=== PATIENT | male | born 1985 | race Caucasian/White ===

== ENCOUNTER 2020-10-29 09:35 | Emergency (ER) | payer BC, SELFPAY ==
[2020-10-29 09:45] VITALS: BP 156/97; PULSE 92; RESP 20; TEMP 36.8; O2SAT 97; BMI 30.7
[2020-10-29 09:49] VITALS: BP 156/97; PULSE 92; RESP 20; TEMP 36.8; O2SAT 97; BMI 30.8
--- NOTE | 2020-10-29 10:13 | HMH.EDUTC ---
[facility] Disposition Clinical Impression: Dental abscess Disposition: Home, Self-Care Condition on Discharge: Good Instructions: Tooth Abscess, Amoxicillin and Clavulanic Acid Additional Instructions: Take antibiotics as prescribed Warm compresses on jaw area may help with pain and swelling Take medications as prescribed for pain Use dental balls as directed in [facility] Make sure to call and make appointment with dentist as soon as possible Follow up with your Family Doctor if no improvement or any worsening of symptoms Return if needed Straight to ER if any life threatening symptoms Prescriptions: Ibuprofen [Ibuprofen 800mg Tablet] 800 mg PO Q8HP PRN #20 tab PRN Reason: Moderate Pain Transmission Status: Pending to [facility] # Amoxicillin/Potassium Clav [Augmentin 875-125 Tablet] 1 tab PO Q12H 10 Days #20 tab Transmission Status: Pending to [facility] # Referrals: PCPNancy [Primary Care Provider] - As needed Alcon Kumar [Referring] - Time of Disposition: 10:22 Medical Decision Making - Ameya Inquiry Pt receiving controlled substance: No Ameya was queried for this patient: No Vital Signs: 10/29/20 09:45 10/29/20 09:49 Temperature 98.3 F 98.3 F Temperature Source Oral Oral Pulse Rate [Left Radial] 92 H 92 H Respiratory Rate 20 20 Blood Pressure [Right Arm] 156/97 H 156/97 H Blood Pressure Mean [Right Arm] 116 116 Blood Pressure Source [Right Arm] Automatic Cuff Automatic Cuff Blood Pressure Position [Right Arm] Sitting Sitting 02 Sat by Pulse Oximetry 97 97 Oxygen Delivery Method Room Air Room Air Orders (Tests/Meds): ED MEDICATIONS Discontinued Medications Generic Name Dose Route Start Last Admin Trade Name Freq PRN Reason Stop Dose Admin Benzocaine/Butamben/Tetracaine HCl 1 gm 10/29/20 10:13 Tetracaine/Benzocaine/Butamben 56 Gm [place] TP 10/29/20 10:14 ONCE ONE Lidocaine HCl 15 ml 10/29/20 10:13 Lidocaine 2% Viscous Marnie 15ml Udc PO 10/29/20 10:14 ONCE ONE Medical Decision Narrative: Patient denies medication allergies and denies home medications [facility] HPI - General Stated complaint: pain in left side of mouth, possible abcess tooth Time Seen by Provider: 10/29/20 10:13 Mode of Arrival: Ambulatory Source of Information: Patient Limitations: No Limitations Description of Symptoms (Recalled from Triage Doc. by RN): c/o upper left tooth pain that goes into his ear and head for 3 days. - History of Present Illness Provider Complaint: Patient states that he has multiple broken and decaying teeth and for the last 3 days he has been having pain in his left upper teeth and noticed he was starting to have some swelling in his gums and swelling and pain starting in his left jaw area and pain shooting back to his ear States that he has had dental abscess in the past that was similar so he came in - Related Data Previous Rx's Medication Instructions Recorded Amoxicillin/Potassium Clav 1 tab PO Q12H 10 Days #20 tab 10/29/20 [Augmentin 875-125 Tablet] Ibuprofen [Ibuprofen 800mg 800 mg PO Q8HP PRN #20 tab 10/29/20 Tablet] Allergies Allergy/AdvReac Type Severity Reaction Status Date / Time No Known Allergies Allergy Verified 10/29/20 09:57 - Worker's Comp Is this a Worker's Comp case?: No [facility] History - Hepatitis A Screen Drug use history?: No High risk sexual behaviors?: No History of sexually transmitted infection?: No Currently employed?: No Childcare worker?: No Do you have indoor plumbing?: Yes Do you have electricity?: Yes Attestation statement:: This patient has been screened for Hepatitis A risk factors. I have reviewed the patient's past medical history: Yes - Social History Smoking Status: Current every day smoker Tobacco Type: cigarettes # Packs/Day (cigarettes): 1 Alcohol Intake: never Occupational Status: other ROS Obtained: Yes All systems reviewed & no additional complaints, Yes S
[2020-10-29 10:25] VITALS: BP 156/97; PULSE 92; RESP 20; TEMP 36.8; O2SAT 97
== END 2020-10-29 10:29 | disposition home or self-care (01) ==
LOC: UTC 09:43 → ER 09:45 → UTC 09:51
PROVIDERS: Emergency Provider Nurse Practitioner
DX: K04.7 Periapical abscess without sinus (principal); K02.9 Dental caries, unspecified; F17.210 Nicotine dependence, cigarettes, uncomplicated
CPT/HCPCS: 99202; G0463

== ENCOUNTER 2020-11-27 11:18 | Emergency (ER) | payer BC, SELFPAY ==
[2020-11-27 11:19] VITALS: BP 163/101; PULSE 91; RESP 18; TEMP 36.8; O2SAT 96; BMI 29.9
[2020-11-27 11:53] LABS: Microscopic, Urine URINE MICROSCOPIC (MICROSCOPIC)
--- NOTE | 2020-11-27 11:54 | CT_ITS ---
PROCEDURE: CT ABDOMEN PELVIS W CON CLINICAL INDICATION: pain Left-sided abdominal pain COMPARISON: No exams were available for comparison TECHNIQUE: IV Contrast: 75ML Isovue 370 Oral Contrast None Axial images obtained with sagittal and coronal reformats. All CT scans at the facility use one or more dose reduction, viz: automated exposure control, ma/kV adjustment per patient size (including targeted exams where dose is matched to indication, i.e. head), or iterative reconstruction technique. FINDINGS: LOWER THORAX: No acute finding ABDOMEN & PELVIS: The liver, gallbladder, spleen, adrenal glands, and pancreas have an unremarkable appearance. No intestinal obstruction or free air. No evidence of appendicitis. There is a complex left retroperitoneal mass with both cystic and solid components. The mass measures 11 cm transverse, 6.5 cm AP, and 9.7 cm cephalad caudad. The mass is epicentered in the left aspect of the retroperitoneum medial to the left kidney. This is displacing the left kidney laterally. The central aspect of the mass has a cystic component. The transverse duodenum is displaced anteriorly. The mass extends across midline toward the right. There are multiple enlarged lymph nodes in the right aspect of the retroperitoneum measuring up to 3.8 cm. There is moderate left-sided hydronephrosis. There is a complex mass within the left hemiscrotum have been a both solid and cystic appearance. The left testicle is enlarged at 7.6 x 6 cm. Small amount fluid is present in the left hemiscrotum. IMPRESSION: There is a large left retroperitoneal mass as described above causing left-sided hydronephrosis and displacing the duodenum anteriorly. Multiple enlarged lymph nodes are present in the right aspect of the retroperitoneum. There is also a suspicious left scrotal mass. Testicular neoplasm with extensive retroperitoneal adenopathy is considered. Conversely, there could be a sarcoma of the retroperitoneum on the left with retroperitoneal adenopathy and metastatic disease to the testicle. Further investigation is required.. Dictated by: Jose Raul Diggs MD 11/27/2020 13:25 Jose Raul Diggs MD in [place] 11/27/2020 13:25
--- NOTE | 2020-11-27 11:55 | HMH.EDABDPAI ---
ED Disposition Clinical Impression: Abdominal mass, left lower quadrant, Testicular mass Disposition: Home, Self-Care Condition on Discharge: Good Instructions: DI for Abdominal Pain-Adult Prescriptions: Hydrocod/Acet 5/325 mg [[place] 5/325mg tablet] 1 tab PO Q6HP PRN #7 tab PRN Reason: Moderate To Severe Pain Transmission Status: Received by [email or web address] #[id number] Referrals: [facility] [Other] Javed Green MD [Staff Physician] - Jason Owens MD [Staff Physician] - - Critical Care Critical Care Time: No Attestation: On 11/27/20, the high probability of a clinically significant, sudden or life threatening deterioration of the following system(s) required my full and direct attention, intervention and personal management. The time I documented below is in addition to time spent performing reported procedures but includes the following listed in this critical care notation. Medical Decision Making - Medical Records Medical records reviewed: Yes: I reviewed the patient's medical records. - Ameya Inquiry Pt receiving controlled substance: Yes Ameya was queried for this patient: No Reason not queried -: Ameya login issues Risks and benefits of using a controlled substance: were discussed with pt by me Vital Signs: 11/27/20 11:19 11/27/20 12:00 Temperature 98.3 F Temperature Source Oral Pulse Rate 85 Pulse Rate [Right Radial] 91 H Respiratory Rate 18 Blood Pressure 142/100 H Blood Pressure [Right Arm] 163/101 H Blood Pressure Mean 118 Blood Pressure Mean [Right Arm] 121 Blood Pressure Source [Right Arm] Automatic Cuff Blood Pressure Position [Right Arm] Sitting 02 Sat by Pulse Oximetry 96 96 Oxygen Delivery Method Room Air - Lab Data Lab Results 11/27/20 11:44: Urine Color Yellow, Urine Appearance Clear, Urine pH 6.5, Ur Specific [place] 1.020, Urine Protein Trace, Urine Glucose (UA) Negative, Urine Ketones Negative, Urine Blood Trace-l, Urine Nitrate Negative, Urine Bilirubin Negative, Urine Urobilinogen 0.2, Ur Leukocyte Esterase Negative, Urine RBC Occasional, Urine WBC 5-10, Ur Squamous Epith Cells Occasional, Urine Bacteria None 11/27/20 11:44: WBC 9.6, RBC 5.47, Hgb 16.0, Hct 49.1, MCV 89.6, MCH 29.2, MCHC 32.6, RDW 12.8, Plt Count 421, MPV 7.1 L, Neut % (Auto) 69.9, Lymph % (Auto) 19.0, [place] % (Auto) 6.0, Eos % (Auto) 4.0, Baso % (Auto) 1.2, Neut # (Auto) 6.7, Lymph # (Auto) 1.8, [place] # (Auto) 0.6, Eos # (Auto) 0.4, Baso # (Auto) 0.1 11/27/20 11:44: Sodium 139, Potassium 4.8, Chloride 108 H, Carbon Dioxide 24, Anion Gap 11.8, BUN 19, Creatinine 1.70 H, Estimated Creat Clear 85, Estimated GFR 47 L, Est GFR ( Amer) 56 L, Glucose 89, Calcium 9.3, Total Bilirubin 0.7, AST 39, ALT 43, Alkaline Phosphatase 110, Total Protein 8.8 H, Albumin 4.7, Globulin 4.1 H, Albumin/Globulin Ratio 1.1, Lipase 148 Result diagrams: 11/27/20 11:44 11/27/20 11:44 Orders (Tests/Meds): ED MEDICATIONS Discontinued Medications Generic Name Dose Route Start Last Admin Trade Name Freq PRN Reason Stop Dose Admin Sodium Chloride 1,000 mls @ 999 mls/hr 11/27/20 12:00 11/27/20 12:02 Sod Chlor 0.9% 1000ml Bag IV 11/27/20 13:00 999 mls/hr .Q1H1M NELSON Administration Iopamidol 75 ml 11/27/20 12:34 11/27/20 12:34 Iopamidol-370 (76%);100ml Bottle IV 11/27/20 12:35 75 ml ONCE ONE Administration Morphine Sulfate 4 mg 11/27/20 11:54 11/27/20 12:02 Morphine 4mg/Ml Syringe IV 11/27/20 11:55 4 mg ONCE ONE Administration Ondansetron HCl 4 mg 11/27/20 11:54 11/27/20 12:02 Ondansetron 4mg/2ml Vial IV 11/27/20 11:55 4 mg ONCE ONE Administration Sodium Chloride 10 ml 11/27/20 12:34 11/27/20 12:34 Sodium Chloride 0.9% 10ml Syr (Rad Only) IV 11/27/20 12:35 10 ml ONCE ONE Administration - CT Data CT Scan: Abdomen, Pelvis Time Received: 14:[address] Reviewed: Yes: I have reviewed the patient's CT results, I have viewed the rad
[2020-11-27 11:59] LABS: Chloride 108 mmol/L (98-107); Potassium 4.8 mmoL/L (3.5-5.1); Sodium 139 mmol/L (136-145)
[2020-11-27 12:00] VITALS: BP 142/100; PULSE 85; O2SAT 96
[2020-11-27 12:00] LABS: Appearance,Urine CLEAR (Clear); Basophils # 0.1 K/mm3 (0-0.2); Basophils % 1.2 % (0.1-2.0); Bilirubin,Urine Negative (Negative); Blood, Urine TRACE-L (Negative); Color,Urine YELLOW (Yellow); Eosinophils # 0.4 K/mm3 (0.0-0.4); Glucose,Urine (UA) Negative (Negative); Hematocrit 49.1 % (42.0-52.0); Ketones,Urine Negative (Negative); Leukocyte Esterase,Urine Negative (Negative); Lymphocytes # 1.8 K/mm3 (0.7-4.5); Mean Corpuscular HGB Conc 32.6 g/dL (31.8-35.4); Mean Corpuscular Hemoglobin 29.2 pg (27.0-31.2); Mean Corpuscular Volume 89.6 fl (80-94); Mean Platelet Volume 7.1 fl (7.4-10.4); Monocytes # 0.6 K/mm3 (0.1-1.0); Neutrophils # 6.7 K/mm3 (1.8-7.8); Neutrophils % 69.9 % (37.0-80.0); Nitrate,Urine Negative (Negative); PH,Urine 6.5 (5.0-8.5); Platelet Count 421 K/mm3 (142-424); Protein,Urine TRACE (Negative); Red Blood Count 5.47 M/mm3 (4.60-6.20); Red Cell Distribution Width 12.8 % (11.5-17.5); Urobilinogen,Urine 0.2 EU/dl (0.2); White Blood Count 9.6 K/mm3 (4.8-10.8)
[2020-11-27 12:01] LABS: Alanine Aminotransferase 43 U/L (12-78); Alkaline Phosphatase 110 U/L (38-126); Aspartate Amino Transferase 39 U/L (17-59); Bilirubin,Total 0.7 mg/dl (0.2-1.3); Blood Urea Nitrogen 19 mg/dl (9-20); Creatinine Clearance Estimated 85 mL/min (50-200); Estimated Glomerular Filt Rate 47 ml/min (>60); GFR (African American) 56 ML/MIN (>60)
[2020-11-27 12:02] LABS: Albumin Level 4.7 g/dl (3.5-5.0); Albumin/Globulin Ratio 1.1 (1.1-1.8); Anion Gap 11.8 mEq/L (5-15); Calcium 9.3 mg/dl (8.4-10.2); Carbon Dioxide 24 mmol/L (22.0-30.0); Globulin 4.1 g/dL (1.3-3.2); Glucose 89 mg/dl (74-100); Lipase 148 U/L (23-300); Total Protein,Serum 8.8 g/dl (6.3-8.2)
--- NOTE | 2020-11-27 12:07 | PC.NURSE ---
notified rad of CT order
[2020-11-27 12:10] LABS: RBC,Urine Occasional #/hpf (0-3)
[2020-11-27 12:11] LABS: Squamous Epithelial Cell,Urine Occasional #/hpf (0-5)
--- NOTE | 2020-11-27 12:13 | PC.NURSE ---
pt to CT
--- NOTE | 2020-11-27 12:34 | PC.NURSE ---
pt return from CT at this time
[2020-11-27 14:52] VITALS: BP 122/65; PULSE 78; RESP 15; TEMP 36.6; O2SAT 98
== END 2020-11-27 14:53 | disposition home or self-care (01) ==
PROVIDERS: Emergency Provider Emergency Medicine
DX: R19.04 Left lower quadrant abdominal swelling, mass and lump (principal); N50.89 Other specified disorders of the male genital organs; F17.210 Nicotine dependence, cigarettes, uncomplicated
CPT/HCPCS: 74177; 80053; 81001; 83690; 85025; 96365; 96375; 99283; J2405; Q9967

== ENCOUNTER → 2020-11-28 17:10 | Outpatient (CLI) | payer BC, SELFPAY ==
--- NOTE | 2020-11-28 17:23 | XR_ITS ---
PROCEDURE: XR CHEST 2V CLINICAL HISTORY: SMOKER, EVALUATE FOR CHEST LESIONS. COMPARISON: No exams were available for comparison FINDINGS: The cardiomediastinal silhouette and pulmonary vascularity are within normal limits. The lungs are clear without infiltrates, suspicious nodules, or pleural effusions. No acute bony abnormalities. IMPRESSION: No acute findings. Dictated by: Jose Raul Diggs MD 11/28/2020 18:14 Jose Raul Diggs MD in [place] 11/28/2020 18:14
[2020-11-28 19:04] LABS: Lactate Dehydrogenase 597 U/L (313-618)
[2020-11-28 19:40] LABS: Erythrocyte Sedimentation Rate 6 mm/hr (0-15)
[2020-11-29 08:34] LABS: HCG,Quantitative 2163 mIU/ml (0-5.42)
[2020-11-30 14:11] LABS: CEA 0.9 ng/mL (0.0-4.7)
== END ==
PROVIDERS: Visit Provider Nurse Practitioner Family
DX: R19.04 Left lower quadrant abdominal swelling, mass and lump (principal); N50.89 Other specified disorders of the male genital organs
CPT/HCPCS: 36415; 71046; 82105; 82378; 83615; 84702; 85651

== ENCOUNTER 2021-01-17 10:15 | Emergency (ER) | payer BC, SELFPAY ==
[2021-01-17 10:17] VITALS: BP 161/97; PULSE 118; RESP 18; TEMP 37.1; O2SAT 98; BMI 27.9
--- NOTE | 2021-01-17 10:51 | HMH.EDGENADL ---
ED Disposition Clinical Impression: Pain, dental, Dental caries Disposition: Home, Self-Care Condition on Discharge: Good Referrals: Diana Rosa APRN [Primary Care Provider] - 3 days Time of Disposition: 11:03 - Critical Care Critical Care Time: No Attestation: On 01/17/21, the high probability of a clinically significant, sudden or life threatening deterioration of the following system(s) required my full and direct attention, intervention and personal management. The time I documented below is in addition to time spent performing reported procedures but includes the following listed in this critical care notation. Medical Decision Making - Medical Records Medical records reviewed: Yes: I reviewed the patient's medical records. - Ameya Inquiry Pt receiving controlled substance: No Vital Signs: 01/17/21 10:17 Temperature 98.7 F Temperature Source Oral Pulse Rate [Right Radial] 118 H Respiratory Rate 18 Blood Pressure [Right Arm] 161/97 H Blood Pressure Mean [Right Arm] 118 Blood Pressure Source [Right Arm] Automatic Cuff Blood Pressure Position [Right Arm] Sitting 02 Sat by Pulse Oximetry 98 Oxygen Delivery Method Room Air Medical Decision Narrative: 35yo M evaluated for dental pain. Patient was recently treated with Augmentin and will therefore be treated clindamycin this time. Patient is discharged home with dental balls. Patient is instructed to follow-up with a dentist for definitive care. Patient voices understanding and agreement the plan. General Adult HPI - General Chief complaint: Dental/Oral Stated complaint: possible tooth abcess Time Seen by Provider: 01/17/21 10:51 Mode of Arrival: Ambulatory Limitations: No Limitations Description of Symptoms (Recalled from ER Triage Doc. by RN): Pt c/o L upper dental pain. Pt was having dental issues a couple weeks ago, seen at [facility], took a round of antibiotics but did not get into the dentist r/t starting chemo. Pt also c/o body aches today. Pt states he is supposed to finished his first round of chemo today but is concerned about possible dental abscess. - History of Present Illness HPI narrative: 35yo M currently undergoing chemotherapy for cancer [facility] presents the emergency department secondary to dental pain. Patient was seen here approximately 6 weeks ago for the same issue. He reports taking antibiotics as directed and using his dental balls as directed. Patient has not followed up with a dentist as directed. He denies fever. He does have complaint of left facial swelling. - Related Data Previous Rx's Medication Instructions Recorded Hydrocod/Acet 5/325 mg [[place] 1 tab PO Q6HP PRN #7 tab 11/27/20 5/325mg tablet] Allergies Allergy/AdvReac Type Severity Reaction Status Date / Time No Known Allergies Allergy Verified 10/29/20 09:57 [facility] History - Hepatitis A Screen Drug use history?: No High risk sexual behaviors?: No History of sexually transmitted infection?: No Currently employed?: No Childcare worker?: No Do you have indoor plumbing?: Yes Do you have electricity?: Yes Attestation statement:: This patient has been screened for Hepatitis A risk factors. I have reviewed the patient's past medical history: Yes Medical History: Reports:: Cancer (testicular) - Social History Smoking Status: Current every day smoker Tobacco Type: cigarettes # Packs/Day (cigarettes): 1 Alcohol Intake: never Substance Use Type: marijuana Occupational Status: other ROS Obtained: Yes All systems reviewed & no additional complaints Physical Exam - General General appearance: alert, in no apparent distress - Head Head exam: atraumatic, normocephalic, normal inspection - Eye Eye exam: Present: normal appearance, PERRL, EOMI - ENT ENT exam: Present: normal exam, normal oropharynx, mucous membranes moist, other (Poor dentition throughout) - Neck Neck exam: Present: normal inspection, full ROM, trachea midline. Abse
[2021-01-17 11:14] VITALS: BP 149/71; PULSE 91; RESP 17; TEMP 36.8; O2SAT 98
== END 2021-01-17 11:13 | disposition home or self-care (01) ==
PROVIDERS: Emergency Provider Family Medicine; PCP Nurse Practitioner Family
DX: K02.9 Dental caries, unspecified (principal); K08.89 Other specified disorders of teeth and supporting structures; C62.90 Malignant neoplasm of unspecified testis, unspecified whether descended or undescended; F17.210 Nicotine dependence, cigarettes, uncomplicated
CPT/HCPCS: 99281

== ENCOUNTER → 2021-07-20 13:38 | Outpatient (CLI) | payer BC, SELFPAY ==
[2021-07-23 07:42] LABS: H. pylori Stool Ag, EIA Negative (Negative)
== END ==
PROVIDERS: Visit Provider Dietitian, Registered
DX: K26.4 Chronic or unspecified duodenal ulcer with hemorrhage (principal)
CPT/HCPCS: 87338

== ENCOUNTER → 2021-08-17 12:12 | Outpatient (CLI) | payer BC, SELFPAY | PROVIDERS: Visit Provider Internal Medicine | DX: Z01.818 Encounter for other preprocedural examination (principal); Z11.52 Encounter for screening for COVID-19 | CPT/HCPCS: C9803; U0003; U0005 ==

== ENCOUNTER → 2021-10-02 13:14 | Outpatient (CLI) | payer BC, SELFPAY | PROVIDERS: PCP Nurse Practitioner Family; Visit Provider Nurse Practitioner | DX: U07.1 COVID-19 (principal) | CPT/HCPCS: C9803; U0003; U0005 ==

== ENCOUNTER 2021-10-06 10:15 | Emergency (ER) | payer BC, SELFPAY ==
[2021-10-06] VITALS (9 sets, daily range): BP systolic 127–154; BP diastolic 88–102; PULSE 82–107; RESP 11–21; TEMP 36.6–37.1; O2SAT 95–99; BMI 25.8
--- NOTE | 2021-10-06 10:40 | XR_ITS ---
PROCEDURE INFORMATION: Exam: XR Chest Exam date and time: 10/06/2021 10:40 AM Age: 36 years old Clinical indication: Dyspnea; Additional info: Shortness of breath, palpatations TECHNIQUE: Imaging protocol: XR of the chest. Views: 1 view. COMPARISON: CR XR CHEST 2V 11/28/2020 5:28 PM FINDINGS: Tubes, catheters and devices: Right IJ Port-A-Cath terminates in the region of the superior cavoatrial junction. Lungs: Unremarkable. No consolidation. Pleural spaces: Unremarkable. No pleural effusion. No pneumothorax. Heart/Mediastinum: Unremarkable. No cardiomegaly. Bones/joints: Unremarkable. IMPRESSION: No acute cardiopulmonary abnormality.
[2021-10-06 12:14] LABS: Basophils # 0.1 K/mm3 (0-0.2); Basophils % 1.1 % (0.1-2.0); Eosinophils # 0.2 K/mm3 (0.0-0.4); Hematocrit 46.5 % (42.0-52.0); Hemoglobin 15.1 g/dL (14.1-18.0); Lymphocytes # 1.2 K/mm3 (0.7-4.5); Lymphocytes % 16.5 % (10-50); Mean Corpuscular HGB Conc 32.4 g/dL (31.8-35.4); Mean Corpuscular Hemoglobin 28.5 pg (27.0-31.2); Mean Corpuscular Volume 88.1 fl (80-94); Mean Platelet Volume 7.2 fl (7.4-10.4); Monocytes # 0.5 K/mm3 (0.1-1.0); Monocytes % 6.9 % (1.7-9.3); Neutrophils # 5.3 K/mm3 (1.8-7.8); Neutrophils % 73.5 % (37.0-80.0); Platelet Count 397 K/mm3 (142-424); Red Blood Count 5.28 M/mm3 (4.60-6.20); Red Cell Distribution Width 15.8 % (11.5-17.5); White Blood Count 7.2 K/mm3 (4.8-10.8)
[2021-10-06 12:20] LABS: Alanine Aminotransferase 66 U/L (12-78); Albumin Level 4.5 g/dl (3.5-5.0); Albumin/Globulin Ratio 1.6 (1.1-1.8); Alkaline Phosphatase 75 U/L (38-126); Aspartate Amino Transferase 36 U/L (17-59); Bilirubin,Total 0.5 mg/dl (0.2-1.3); Blood Urea Nitrogen 15 mg/dl (9-20); Calcium 9.3 mg/dl (8.4-10.2); Carbon Dioxide 24 mmol/L (22.0-30.0); Chloride 108 mmol/L (98-107); Creatinine Clearance Estimated 109 mL/min (50-200); Estimated Glomerular Filt Rate 77 ml/min (>60); GFR (African American) 93 ML/MIN (>60); Globulin 2.9 g/dL (1.3-3.2); Glucose 85 mg/dl (74-100); Magnesium 1.9 mg/dl (1.6-2.3); Phosphorous 2.6 mg/dl (2.5-4.5); Sodium 141 mmol/L (136-145); Total Protein,Serum 7.4 g/dl (6.3-8.2)
[2021-10-06 12:25] LABS: D-Dimer 0.71 ug/mL (0.0-0.5)
[2021-10-06 12:39] LABS: T4 (Thyroxine) 15.2 ug/dl (5.53-11.0)
--- NOTE | 2021-10-06 12:45 | CT_ITS ---
PROCEDURE INFORMATION: Exam: CTA Chest With Contrast Exam date and time: 10/06/2021 12:45 PM Age: 36 years old Clinical indication: Dyspnea; Additional info: Shortness of breath. 75 of isovue 370 TECHNIQUE: Imaging protocol: Computed tomographic angiography of the chest with contrast. 3D rendering (Not supervised by radiologist): MIP and/or 3D reconstructed images were created by the technologist. Radiation optimization: All CT scans at this facility use at least one of these dose optimization techniques: automated exposure control; mA and/or kV adjustment per patient size (includes targeted exams where dose is matched to clinical indication); or iterative reconstruction. Contrast material: ISOVU 370; Contrast volume: 75 ml; Contrast route: INTRAVENOUS (IV); COMPARISON: CR XR CHEST PORTABLE 10/06/2021 11:19 AM FINDINGS: Tubes, catheters and devices: MediPort terminates in the right atrium Pulmonary arteries: No evidence of pulmonary embolus to the segmental level. Aorta: No aneurysm of the aorta. No dissection of the aorta. Retroperitoneum: 3.4 by 4 cm mass between the aortic arch and the left kidney. Series 5, image 128. There was a larger mass in this region in November 2020.. Lungs: Patchy opacities in the upper lobes and right middle lobe and lingula and both lower lobes may represent multifocal pneumonia including COVID-19. Pleural spaces: Unremarkable. No pneumothorax. No pleural effusion. Heart: Unremarkable. No cardiomegaly. No pericardial effusion. Lymph nodes: Possible enlarged retroperitoneal lymph nodes or masses Pancreas: 3.6 x 2.7 cm low-attenuation mass along the inferior aspect of the pancreas. Series 1001, image 36 and series 5 image 114. This is not clearly a loop of bowel and is worrisome for mass. It was not present in November 2020 Recommend repeat study with oral contrast. Additional mass more distally in the pancreatic tail. Series 5, image 112-115 . Kidneys and ureters: Hydronephrosis of the left kidney. Soft tissue density around the left collecting system. Series 5, image 128 -132.. Bones/joints: Unremarkable. No acute fracture. Soft tissues: Unremarkable. IMPRESSION: 1. No evidence of pulmonary embolus to the segmental level. 2. No aneurysm of the aorta. 3. No dissection of the aorta. 4. Patchy opacities in the upper lobes and right middle lobe and lingula and both lower lobes may represent multifocal pneumonia including COVID-19. 5. 3.6 x 2.7 cm low-attenuation mass along the inferior aspect of the pancreas. Series 1001, image 36 and series 5 image 114. This is not clearly a loop of bowel and is worrisome for mass. It was not present in November 2020 Recommend repeat study with oral contrast. Additional mass more distally in the pancreatic tail. Series 5, image 112-115 . 6. 3.4 by 4 cm mass between the aortic arch and the left kidney. Series 5, image 128. There was a larger mass in this region in November 2020.. 7. Hydronephrosis of the left kidney. Soft tissue density around the left collecting system. Series 5, image 128 -132.. This may be originating in the mass between the aortic arch in the left kidney COMMENTS: Consistent with the [employer]'s Incidental Findings Committee white paper (J Am Mana Radiol 2018): Any incidental renal lesion less than 1 cm or classified as too small to characterize, or any incidental cystic renal lesion characterized as simple-appearing, is likely benign. No follow-up imaging is recommended for these lesions per consensus recommendations based on imaging criteria.
[2021-10-06 12:53] LABS: Thyroid Stimulating Hormone 0.59 uIU/mL (0.465-4.68)
--- NOTE | 2021-10-06 14:19 | PC.NURSE ---
on the phone with SMOOTH
--- NOTE | 2021-10-06 14:40 | HMH.EDGENADL ---
ED Disposition Clinical Impression: Acute anxiety Disposition: Home, Self-Care Condition on Discharge: Good Prescriptions: hydrOXYzine pamoate [Vistaril 25mg capsule] 25 mg PO BID PRN 5 Days #10 cap PRN Reason: Anxiety Transmission Status: Pending to [facility] #[id number] hydrOXYzine pamoate [Vistaril 25mg capsule] 25 mg PO BID PRN 5 Days cap PRN Reason: Anxiety Prescription Printed Referrals: Diana Rosa APRN [Primary Care Provider] - - Critical Care Critical Care Time: No Attestation: On 10/06/21, the high probability of a clinically significant, sudden or life threatening deterioration of the following system(s) required my full and direct attention, intervention and personal management. The time I documented below is in addition to time spent performing reported procedures but includes the following listed in this critical care notation. Medical Decision Making - Medical Records Medical records reviewed: Yes: I reviewed the patient's medical records. - Ameya Inquiry Pt receiving controlled substance: No Ameya was queried for this patient: No Vital Signs: 10/06/21 10:16 10/06/21 11:00 10/06/21 11:30 Temperature 97.9 F Temperature Source Oral Pulse Rate 89 90 Pulse Rate [Right Radial] 107 H Respiratory Rate 18 18 18 Blood Pressure 127/88 127/95 H Blood Pressure [Right Arm] 149/100 H Blood Pressure Mean 95 101 Blood Pressure Mean [Right Arm] 116 Blood Pressure Source [Right Arm] Automatic Cuff Blood Pressure Position [Right Arm] Sitting 02 Sat by Pulse Oximetry 97 97 97 Oxygen Delivery Method Room Air 10/06/21 12:00 10/06/21 12:30 10/06/21 13:30 Temperature Temperature Source Pulse Rate 82 89 87 Pulse Rate [Right Radial] Respiratory Rate 16 18 21 Blood Pressure 127/90 129/91 H 154/97 H Blood Pressure [Right Arm] Blood Pressure Mean 98 100 115 Blood Pressure Mean [Right Arm] Blood Pressure Source [Right Arm] Blood Pressure Position [Right Arm] 02 Sat by Pulse Oximetry 97 98 99 Oxygen Delivery Method 10/06/21 14:00 10/06/21 14:30 Temperature Temperature Source Pulse Rate 89 86 Pulse Rate [Right Radial] Respiratory Rate 17 18 Blood Pressure 150/95 H 148/102 H Blood Pressure [Right Arm] Blood Pressure Mean 109 118 Blood Pressure Mean [Right Arm] Blood Pressure Source [Right Arm] Blood Pressure Position [Right Arm] 02 Sat by Pulse Oximetry 98 97 Oxygen Delivery Method - Lab Data Lab results reviewed: Yes: I reviewed the patient's lab results. Lab Results 10/06/21 11:45: WBC 7.2, RBC 5.28, Hgb 15.1, Hct 46.5, MCV 88.1, MCH 28.5, MCHC 32.4, RDW 15.8, Plt Count 397, MPV 7.2 L, Neut % (Auto) 73.5, Lymph % (Auto) 16.5, [place] % (Auto) 6.9, Eos % (Auto) 2.0, Baso % (Auto) 1.1, Neut # (Auto) 5.3, Lymph # (Auto) 1.2, [place] # (Auto) 0.5, Eos # (Auto) 0.2, Baso # (Auto) 0.1 10/06/21 11:45: D-Dimer 0.71 H 10/06/21 11:45: Sodium 141, Potassium 4.0, Chloride 108 H, Carbon Dioxide 24, Anion Gap 13.0, BUN 15, Creatinine 1.10, Estimated Creat Clear 109, Estimated GFR 77, Est GFR ( Amer) 93, Glucose 85, Calcium 9.3, Phosphorus 2.6, Magnesium 1.9, Total Bilirubin 0.5, AST 36, ALT 66, Alkaline Phosphatase 75, Total Protein 7.4, Albumin 4.5, Globulin 2.9, Albumin/Globulin Ratio 1.6, TSH 0.59, Thyroxine (T4) 15.2 H Result diagrams: 10/06/21 11:45 10/06/21 11:45 Orders (Tests/Meds): ED MEDICATIONS Discontinued Medications Generic Name Dose Route Start Last Admin Trade Name Freq PRN Reason Stop Dose Admin Hydroxyzine Pamoate 25 mg 10/06/21 10:41 10/06/21 11:58 Hydroxyzine Pamoate 25mg Capsule PO 10/06/21 10:42 25 mg ONCE ONE Administration Lactated Ringer's 1,000 mls @ 999 mls/hr 10/06/21 10:45 10/06/21 11:57 Lactated Ringer's 1000 Ml Bag IV 10/06/21 11:45 999 mls/hr .Q1H1M NELSON Administration Iopamidol 75 ml 10/06/21 13:30 10/06/21 14:06 Iopamidol-370 (76%);100ml Bottle IV 10/06/21
== END 2021-10-06 15:20 | disposition home or self-care (01) ==
PROVIDERS: Emergency Provider Emergency Medicine; PCP Nurse Practitioner Family
DX: U07.1 COVID-19 (principal); F41.9 Anxiety disorder, unspecified; C25.9 Malignant neoplasm of pancreas, unspecified; C79.82 Secondary malignant neoplasm of genital organs; I10 Essential (primary) hypertension; F17.210 Nicotine dependence, cigarettes, uncomplicated
CPT/HCPCS: 71045; 71275; 80053; 83735; 84100; 84436; 84443; 85025; 85378; 96365; 99282; J1642; Q9967

== ENCOUNTER 2022-03-18 21:39 | Emergency (ER) | payer BC, SELFPAY ==
[2022-03-18 22:20] VITALS: BP 0/0; PULSE 0; RESP 0; TEMP -17.7; TEMP 0; O2SAT 0
== END 2022-03-18 22:40 | disposition left against medical advice (07) ==
LOC: ER 22:38
PROVIDERS: Emergency Provider Emergency Medicine; PCP Nurse Practitioner Family
DX: Z53.21 Procedure and treatment not carried out due to patient leaving prior to being seen by health care provider (principal)

== ENCOUNTER 2022-03-28 01:13 | Emergency (ER) | payer BC, SELFPAY ==
--- NOTE | 2022-03-28 01:08 | ECG_ITS ---
APPROVED REPORT Exam: Resting ECG HR:110 bpm ECG Measurements Heart Rate 110 AXES FL 150 P 62 QRSd 84 QRS 67 QT 315 T 60 QTc 380 Conclusion SINUS TACHYCARDIA O/w NORMAL ECG UNCONFIRMED REPORT Electronically signed by : Ronald Franco MD 03/28/2022 10:09:07
[2022-03-28 01:23] VITALS: BP 153/106; PULSE 109; RESP 18; TEMP 37.4; O2SAT 99; BMI 30.7
[2022-03-28 01:24] LABS: Coronavirus 19, PCR Not Detected (NotDetected); Influenza A, PCR Not Detected (NotDetected); Influenza B, PCR Not Detected (NotDetected)
--- NOTE | 2022-03-28 01:31 | XR_ITS ---
PROCEDURE INFORMATION: Exam: XR Chest Exam date and time: 03/28/2022 1:32 AM Age: 36 years old Clinical indication: Pain; Chest pressure; Prior surgery; Surgery type: Port; Additional info: Cp, patient states chest pressure that radiated to left arm. States he thinks it might have been a panic attack TECHNIQUE: Imaging protocol: Radiologic exam of the chest. Views: 2 views. COMPARISON: CR XR CHEST PORTABLE 10/06/2021 11:19 AM FINDINGS: Tubes, catheters and devices: Right internal jugular central venous catheter tip in the lower superior vena cava. Lungs: Normal. Pleural spaces: Unremarkable. No pleural effusion. No pneumothorax. Heart/Mediastinum: Normal. Bones/joints: No acute abnormality. IMPRESSION: No acute cardiopulmonary abnormality.
--- NOTE | 2022-03-28 01:39 | PC.NURSE ---
Pt gone to RAD for XRAY
[2022-03-28 01:41] LABS: Basophils # 0.1 K/mm3 (0-0.2); Basophils % 1.1 % (0.1-2.0); Eosinophils # 0.3 K/mm3 (0.0-0.4); Eosinophils % 2.8 % (0.1-12.0); Hematocrit 47.6 % (42.0-52.0); Hemoglobin 16.6 g/dL (14.1-18.0); Lymphocytes # 2.8 K/mm3 (0.7-4.5); Mean Corpuscular HGB Conc 34.9 g/dL (31.8-35.4); Mean Corpuscular Hemoglobin 30.8 pg (27.0-31.2); Mean Corpuscular Volume 88.5 fl (80-94); Mean Platelet Volume 6.8 fl (7.4-10.4); Monocytes # 0.7 K/mm3 (0.1-1.0); Monocytes % 7.3 % (1.7-9.3); Neutrophils # 6.1 K/mm3 (1.8-7.8); Neutrophils % 60.8 % (37.0-80.0); Platelet Count 308 K/mm3 (142-424); Red Blood Count 5.38 M/mm3 (4.60-6.20); Red Cell Distribution Width 12.8 % (11.5-17.5); White Blood Count 10.1 K/mm3 (4.8-10.8)
[2022-03-28 01:42] LABS: Chloride 107 mmol/L (98-107); Potassium 3.6 mmoL/L (3.5-5.1); Sodium 137 mmol/L (136-145)
--- NOTE | 2022-03-28 01:43 | PC.NURSE ---
Pt back from RAD
[2022-03-28 01:44] LABS: Blood Urea Nitrogen 17 mg/dl (9-20); Creatinine Clearance Estimated 99 mL/min (50-200); Estimated Glomerular Filt Rate 58 ml/min (>60); GFR (African American) 70 ML/MIN (>60)
[2022-03-28 01:45] LABS: Anion Gap 10.6 mEq/L (5-15); Calcium 9.8 mg/dl (8.4-10.2); Carbon Dioxide 23 mmol/L (22.0-30.0); Glucose 104 mg/dl (74-100)
[2022-03-28 01:48] LABS: Lactic Acid 0.9 mmol/L (0.7-2.1)
--- NOTE | 2022-03-28 01:55 | PC.NURSE ---
at BS speaking with Pt
--- NOTE | 2022-03-28 01:56 | CT_ITS ---
PROCEDURE INFORMATION: Exam: CTA Chest With Contrast Exam date and time: 03/28/2022 2:11 AM Age: 36 years old Clinical indication: Pain; Chest pressure; Prior surgery; Surgery date: 6+ months; Surgery type: Port; Additional info: Cp, weakness TECHNIQUE: Imaging protocol: Computed tomographic angiography of the chest with contrast. 3D rendering (Not supervised by radiologist): MIP and/or 3D reconstructed images were created by the technologist. Radiation optimization: All CT scans at this facility use at least one of these dose optimization techniques: automated exposure control; mA and/or kV adjustment per patient size (includes targeted exams where dose is matched to clinical indication); or iterative reconstruction. Contrast material: ISOVUE; Contrast volume: 70 ml; Contrast route: INTRAVENOUS (IV); COMPARISON: CT ANGIO CHEST PE PROTOCOL 10/06/2021 1:14 PM FINDINGS: Tubes, catheters and devices: Right internal jugular central venous catheter tip in the lower superior vena cava. Pulmonary arteries: Normal. No pulmonary emboli. Aorta: Unremarkable. No aortic aneurysm. No aortic dissection. Lungs: 4 mm noncalcified subpleural pulmonary nodule within the anterior right upper lobe (series 5, image 40), unchanged. Pleural spaces: Unremarkable. No pneumothorax. No pleural effusion. Heart: Unremarkable. No cardiomegaly. No pericardial effusion. Lymph nodes: Unremarkable. No enlarged lymph nodes. Bones/joints: Unremarkable. No acute fracture. Soft tissues: Unremarkable. IMPRESSION: No acute thoracic abnormality.
[2022-03-28 01:58] LABS: Troponin I < 0.01 ng/ml (0.00-0.034)
[2022-03-28 02:30] VITALS: BP 141/99; PULSE 87; RESP 16; O2SAT 97
--- NOTE | 2022-03-28 02:44 | PC.NURSE ---
pt updated on POC and awating ct results
--- NOTE | 2022-03-28 02:45 | PC.NURSE ---
At approximately 0225 cnc service technician Fani notified me that during the patient ct for pe with contrast the patient complained of pain at his iv site (following dye insertion). Fani felt the site and noted a small knot and notified me of her findings after applying a cold compress. I assessed the IV and during draw back got good blood return and IV flushed without any pain, though a small non tender knot was noted next to the site. notified. No new orders.
[2022-03-28 03:00] VITALS: BP 140/93; PULSE 79; RESP 20; O2SAT 98
--- NOTE | 2022-03-28 03:29 | [facility]H.EDCP ---
ED Disposition Clinical Impression: Atypical chest pain Disposition: Home, Self-Care Condition on Discharge: Good Instructions: DI for Atypical Chest Pain Additional Instructions: call pcp for follow up Referrals: Diana Rosa APRN [Primary Care Provider] - - Critical Care Critical Care Time: No Attestation: On 03/28/22, the high probability of a clinically significant, sudden or life threatening deterioration of the following system(s) required my full and direct attention, intervention and personal management. The time I documented below is in addition to time spent performing reported procedures but includes the following listed in this critical care notation. Medical Decision Making - Medical Records Medical records reviewed: Yes: I reviewed the patient's medical records. - Ameya Inquiry Pt receiving controlled substance: No Vital Signs: 03/28/22 01:23 03/28/22 02:30 03/28/22 03:00 Temperature 99.3 F Temperature Source Oral Pulse Rate 87 79 Pulse Rate [Apical] 109 H Respiratory Rate 18 16 20 Blood Pressure 141/99 H 140/93 H Blood Pressure [Right Arm] 153/106 H Blood Pressure Mean 112 102 Blood Pressure Mean [Right Arm] 121 Blood Pressure Source [Right Arm] Automatic Cuff Blood Pressure Position [Right Arm] Sitting 02 Sat by Pulse Oximetry 99 97 98 Oxygen Delivery Method Room Air - Lab Data Lab results reviewed: Yes: I reviewed the patient's lab results. Lab Results 03/28/22 01:14: SARS-CoV-2 (PCR) Not detected, Influenza A Untype (PCR) Not detected, Influenza Type B (PCR) Not detected 03/28/22 01:22: WBC 10.1, RBC 5.38, Hgb 16.6, Hct 47.6, MCV 88.5, MCH 30.8, MCHC 34.9, RDW 12.8, Plt Count 308, MPV 6.8 L, Neut % (Auto) 60.8, Lymph % (Auto) 28.0, [place] % (Auto) 7.3, Eos % (Auto) 2.8, Baso % (Auto) 1.1, Neut # (Auto) 6.1, Lymph # (Auto) 2.8, [place] # (Auto) 0.7, Eos # (Auto) 0.3, Baso # (Auto) 0.1 03/28/22 01:22: Sodium 137, Potassium 3.6, Chloride 107, Carbon Dioxide 23, Anion Gap 10.6, BUN 17, Creatinine 1.40 H, Estimated Creat Clear 99, Estimated GFR 58 L, Est GFR ( Amer) 70, Glucose 104 H, Calcium 9.8, Troponin I < 0.01 03/28/22 01:22: Lactate 0.9 Result diagrams: 03/28/22 01:22 03/28/22 01:22 Orders (Tests/Meds): ED MEDICATIONS Generic Name Dose Route Start Last Admin Trade Name Freq PRN Reason Stop Dose Admin Sodium Chloride 1,000 mls @ 999 mls/hr 03/28/22 01:45 03/28/22 01:33 Sod Chlor 0.9% 1000ml Bag IV 03/28/22 02:45 999 mls/hr .Q1H1M NELSON Administration Discontinued Medications Generic Name Dose Route Start Last Admin Trade Name Freq PRN Reason Stop Dose Admin Aspirin 324 mg 03/28/22 01:31 03/28/22 01:33 Aspirin 81mg Chewable Tablet PO 03/28/22 01:32 324 mg ONCE ONE Administration Iopamidol 70 ml 03/28/22 02:23 03/28/22 02:24 Iopamidol-370 (76%);100ml Bottle IV 03/28/22 02:24 70 ml ONCE ONE Administration Sodium Chloride 50 ml 03/28/22 02:23 03/28/22 02:24 0.9 % Sodium Chloride 50 Ml Vial IV 03/28/22 02:24 50 ml ONCE ONE Administration Sodium Chloride 10 ml 03/28/22 02:23 03/28/22 02:24 Sodium Chloride 0.9% 10ml Syr (Rad Only) IV 03/28/22 02:24 10 ml ONCE ONE Administration ORDERS Category Date Time Status Troponin I Q3H Lab 03/28/22 04:45 Ordered Troponin I Q3H Lab 03/28/22 07:45 Ordered Blood Culture Stat Micro 03/28/22 01:22 Received - Radiology Data #1 Image(s): Chest Image Reviewed: Yes I have reviewed radiologist's interpretation Preliminary Findings: Normal/NAD - CT Data CT Scan: Chest Time Received: 03:[address] Reviewed: Yes: I have viewed the radiologist's interpretation Preliminary Findings: Normal/NAD - ECG Data Tracing #1 Arrhythmias present: sinus tach Ischemic changes: non-specific ST-T wave changes Medical Decision Narrative: chest pain nonspecific with stable labs and exam Chest Pain HPI - General Chief Complaint: Chantelle
[2022-03-28 03:47] VITALS: BP 133/91; PULSE 74; RESP 18; TEMP 37.4; O2SAT 98
== END 2022-03-28 03:49 | disposition home or self-care (01) ==
PROVIDERS: Emergency Provider Emergency Medicine; PCP Nurse Practitioner Family
DX: R07.89 Other chest pain (principal); R53.1 Weakness; R42 Dizziness and giddiness; F17.210 Nicotine dependence, cigarettes, uncomplicated
CPT/HCPCS: 71046; 71275; 80048; 83605; 84484; 85025; 87040; 93005; 96360; 99285; C9803; Q9967; U0003; U0005

== ENCOUNTER → 2022-10-17 15:24 | Outpatient (CLI) | payer BC, SELFPAY | PROVIDERS: PCP Nurse Practitioner Family; Visit Provider Nurse Practitioner Family | DX: R00.2 Palpitations (principal) | CPT/HCPCS: 93225; 93226 ==

== ENCOUNTER 2024-02-04 11:50 | Emergency (ER) | payer BC, SELFPAY ==
[2024-02-04] VITALS (7 sets, daily range): BP systolic 124–139; BP diastolic 89–105; PULSE 74–130; RESP 12–21; TEMP 36.7; O2SAT 95–97; BMI 34.8
--- NOTE | 2024-02-04 11:47 | ECG_ITS ---
APPROVED REPORT Exam: Resting ECG HR:125 bpm ECG Measurements Heart Rate 125 AXES WA 148 P 55 QRSd 84 QRS 75 QT 336 T 28 QTc 410 Conclusion SINUS TACHYCARDIA NONSPECIFIC ST & T-WAVE ABNORMALITY ABNORMAL RHYTHM ECG Electronically signed by : ROMÁN SAWYER, 02/04/2024 16:10:04
--- NOTE | 2024-02-04 12:00 | XR_ITS ---
FINAL REPORT CLINICAL HISTORY: Precordial chest pain FINDINGS: A single view of the chest was obtained. A chest port is present with the tip in the SVC. The heart is normal in size. The mediastinum is unremarkable. The lungs are clear. There is no pleural effusion. There is no pneumothorax. There is no acute osseous abnormality. IMPRESSION: No acute cardiopulmonary process. Reviewed, Interpreted and Dictated by Jerry Qiuros MD Transcribed by Britney Medellin Authenticated and [facility]
[2024-02-04] MEDS: ASPIRIN 81MG CHEWABLE TABLET 324 MG PO (12:03)
[2024-02-04 12:13] LABS: Basophils # 0.2 K/mm3 (0-0.2); Basophils % 1.6 % (0.1-2.0); Eosinophils # 0.2 K/mm3 (0.0-0.4); Eosinophils % 2.2 % (0.1-12.0); Lymphocytes # 2.5 K/mm3 (0.7-4.5); Lymphocytes % 24.6 % (10-50); Mean Corpuscular HGB Conc 33.4 g/dL (31.8-35.4); Mean Corpuscular Hemoglobin 31.3 pg (27.0-31.2); Mean Corpuscular Volume 93.8 fl (80-94); Monocytes # 0.7 K/mm3 (0.1-1.0); Monocytes % 6.9 % (1.7-9.3); Neutrophils # 6.6 K/mm3 (1.8-7.8); Neutrophils % 64.8 % (37.0-80.0); Platelet Count 318 K/mm3 (142-424); Red Blood Count 5.76 M/mm3 (4.60-6.20); Red Cell Distribution Width 13.5 % (11.5-17.5); White Blood Count 10.3 K/mm3 (4.8-10.8)
[2024-02-04 12:27] LABS: Anion Gap 16.6 mEq/L (5-15); Blood Urea Nitrogen 21 mg/dl (9-20); Calcium 10.4 mg/dl (8.4-10.2); Carbon Dioxide 24 mmol/L (22.0-30.0); Chloride 105 mmol/L (98-107); Creatinine Clearance Estimated 109 mL/min (50-200); Estimated Glomerular Filt Rate 53 ml/min (>60); GFR (African American) 64 ML/MIN (>60); Glucose 99 mg/dl (74-100); Potassium 3.6 mmoL/L (3.5-5.1); Sodium 142 mmol/L (136-145)
[2024-02-04 12:53] LABS: D-Dimer 0.34 ug/mL (0.0-0.5)
[2024-02-04 13:03] LABS: NT Pro Brain Natriuretic Pep. < 20.0 pg/mL (0-125)
[2024-02-04 13:10] LABS: Coronavirus 19, PCR Not Detected (NotDetected); Influenza A, PCR Not Detected (NotDetected); Influenza B, PCR Not Detected (NotDetected)
[2024-02-04] MEDS: LACTATED RINGERS 1000ML 1,000 ML 999 ML IV (13:13)
--- NOTE | 2024-02-04 13:37 | HMH.EDCP ---
Discharge Plan Disposition Patient Disposition: Home, Self-Care Condition: Good Prescriptions Prescriptions: New pantoprazole 40 mg tablet,delayed release (DR/EC) 40 mg PO DAILY Qty: 30 1RF No Action metoprolol succinate 50 mg Tablet Extended Release 24 Hr 50 mg PO DAILY duloxetine 60 mg Capsule,Delayed Release(Dr/Ec) 60 mg PO DAILY Referrals Follow up/Referrals: Diana Strong APRN [Primary Care Provider] - See instructions Activity Restrictions/Add. Instructions Additional Instructions/Restrictions: You were evaluated in the emergency department today. Please follow-up closely with your primary care provider. cupola melter your prescription and take daily as prescribed. Return to the emergency department for new or worsening symptoms Clinical Impressions Clinical Impression: Chest pain, Anxiety, Acid reflux Instructions Patient Instructions: DI for Atypical Chest Pain Discharge ED Provider: Reba Ortiz General Chief Complaint: Chest Pain Stated Complaint: chest pain Time Seen by Provider: 02/04/24 12:17 Mode of Arrival: Ambulatory Source of Information: Patient Limitations: No Limitations Description of Symptoms (Recalled from ER Triage Doc. by RN): PT. states he has had chest pain/ discomfort for about a week. He states it has gotten worse today about 2 hours ago. It is in the left side of his chest and radiaites to the shoulder around to his back. He states it is a heavy feeling that worsenes with activity. History of Present Illness HPI narrative: This patient is a 38-year-old male with a history of anxiety, testicular cancer with metastasis status post surgical resection and chemotherapy, tobacco use disorder, marijuana use disorder, DANK, and dental caries presenting to the emergency department for evaluation with concern for chest pain and generally feeling unwell for about a week. He states that he feels like something in his body is not right. He states that he feels like his whole body is shutting down. He notes that his symptoms got worse about 2 hours ago. To the left side of his chest and radiates to his shoulder. He describes it as a heaviness that worsens with any sort of activity. He states that he gets very fatigued and cannot hardly do anything at all. No fevers, cough, congestion, abdominal pain, vomiting, or other concerns noted. Related Data Home Medications Medication Instructions Recorded Confirmed duloxetine 60 mg capsule,delayed 60 mg PO DAILY 02/04/24 02/04/24 release metoprolol succinate 50 mg 50 mg PO DAILY 02/04/24 02/04/24 tablet,extended release 24 hr Previous Rx's Medication Instructions Recorded pantoprazole 40 mg tablet,delayed 40 mg PO DAILY #30 tabs 02/04/24 release Allergies Allergy/AdvReac Type Severity Reaction Status Date / Time No Known Allergies Allergy Verified 02/04/24 12:04 [facility] Disclaimer: The information contained in this section may have been updated after the patient was seen, as this information can be updated by other users. Medical History Depression Hypertension DANK (obstructive sleep apnea) Lymph node cancer Testicular cancer Surgical History H/O removal of testicle Social History Smoking Status: Current every day smoker tobacco type: cigarettes packs per day: 1 alcohol intake: never substance use type: marijuana current occupational status: other Travel in the last 8 weeks: None ROS Obtained: Yes All systems reviewed & no additional complaints except as documented Physical Exam General General appearance: alert, in no apparent distress and anxious Head Head exam: atraumatic and normocephalic Eye Eye exam: Present normal appearance, PERRL and EOMI ENT ENT exam: Present normal exam, normal oropharynx, mucous membranes moist and normal external ear exam Neck Neck exam: Present normal inspection, full ROM and trachea midline; Absent tenderness Chest Chest inspection: Present normal inspection and symmetric chest wall rise; Absent tenderness Respiratory Respiratory exam: Present normal lung sounds bilaterally; Absent respiratory distress, wheezes, stridor or accessory muscle use Cardiovascular Cardiovascular exam: Present normal rhythm and tachycardia Abdominal Exam Abdominal exam: Present soft; Absent distention, tenderness or guarding Extremities Exam Extremities exam: Present normal inspection, full ROM and normal capillary refill; Absent tenderness or edema Back Exam Back exam: Present normal inspection and full ROM; Absent tenderness Neurological Exam Neurological exam: Present alert, oriented X3, CN II-XII intact and normal gait; Absent motor sensory deficit Psychiatric Psychiatric exam: Present anxious Skin Skin exam: Present warm and dry HEART Score HEART Score HEART Score assessment performed?: Yes History (anamnesis): Slightly suspicious ECG: Normal Age: <45 years Risk factors: No known risk factors Troponin: </= normal limit HEART Score: 0 Critical Care Critical Care Time Critical Care Time: No Medical Decision Making Ameya Inquiry Pt receiving controlled substance: No Vital Signs Vital Signs: 02/04/24 11:56 02/04/24 12:30 02/04/24 13:00 Temperature 98.0 F Temperature Source Oral Pulse Rate 105 H 94 H Pulse Rate [Right Brachial] 130 H Respiratory Rate 18 21 15 Blood Pressure 137/100 H 128/92 H Blood Pressure [Right Arm] 139/105 H Blood Pressure Mean [Right Arm] 116 Blood Pressure Source [Right Arm] Automatic Cuff Blood Pressure Position [Right Arm] Sitting 02 Sat by Pulse Oximetry 97 95 96 Oxygen Delivery Method Room Air 02/04/24 13:30 02/04/24 14:00 02/04/24 14:30 Temperature Temperature Source Pulse Rate 86 83 74 Pulse Rate [Right Brachial] Respiratory Rate 17 13 12 Blood Pressure 124/93 H 128/89 125/90 Blood Pressure [Right Arm] Blood Pressure Mean [Right Arm] Blood Pressure Source [Right Arm] Blood Pressure Position [Right Arm] 02 Sat by Pulse Oximetry 95 96 95 Oxygen Delivery Method Room Air Room Air 02/04/24 15:08 Temperature 98.0 F Temperature Source Pulse Rate 74 Pulse Rate [Right Brachial] Respiratory Rate 16 Blood Pressure 125/90 Blood Pressure [Right Arm] Blood Pressure Mean [Right Arm] Blood Pressure Source [Right Arm] Blood Pressure Position [Right Arm] 02 Sat by Pulse Oximetry Oxygen Delivery Method Room Air Lab Data Labs: Lab Results 02/04/24 11:56: WBC 10.3, RBC 5.76, Hgb 17.8, Hct 54.0 H, MCV 93.8, MCH 31.3 H, MCHC 33.4, RDW 13.5, Plt Count 318, MPV 8.0, Neut % (Auto) 64.8, Lymph % (Auto) 24.6, [place] % (Auto) 6.9, Eos % (Auto) 2.2, Baso % (Auto) 1.6, Neut # (Auto) 6.6, Lymph # (Auto) 2.5, [place] # (Auto) 0.7, Eos # (Auto) 0.2, Baso # (Auto) 0.2, D-Dimer 0.34, Sodium 142, Potassium 3.6, Chloride 105, Carbon Dioxide 24, Anion Gap 16.6 H, BUN 21 H, Creatinine 1.50 H, Estimated Creat Clear 109, Estimated GFR 53 L, Est GFR ( Amer) 64, Glucose 99, Calcium 10.4 H, Troponin I < 0.01, NT-Pro-B Natriuret Pep < 20.0 02/04/24 13:04: SARS-CoV-2 (PCR) Not detected, Influenza A Untype (PCR) Not detected, Influenza Type B (PCR) Not detected 02/04/24 11:56 02/04/24 11:56 Response Orders (Tests/Meds): ED MEDICATIONS Discontinued Medications Generic Name Dose Route Start Last Admin Trade Name Freq PRN Reason Stop Dose Admin Aspirin 324 mg 02/04/24 12:00 02/04/24 12:03 Aspirin 81mg Chewable Tablet PO 02/04/24 12:01 324 mg ONCE ONE Administration Lactated Ringer's 1,000 mls @ 999 mls/hr 02/04/24 13:04 02/04/24 13:13 Lactated Ringer's 1000 Ml Bag IV 02/04/24 14:04 999 mls/hr .Q1H1M ONE Administration Nitroglycerin 0.4 mg 02/04/24 12:00 Nitroglycerin 0.4mg Sl Tablet SL 02/05/24 12:00 Q5MINP PRN Chest Pain ORDERS Category Date Time Status XR chest portable Stat Exams 02/04/24 12:00 Completed BNP [NT Pro Brain Natriuretic Pep.] Stat Lab 02/04/24 11:56 Completed Basic Metabolic Panel Stat Lab 02/04/24 11:56 Completed Complete Blood Count Auto Diff Stat Lab 02/04/24 11:56 Completed D-Dimer Stat Lab 02/04/24 11:56 Completed Rapid PCR Covid and Flu A/B Stat Lab 02/04/24 13:04 Completed Troponin I Q3H Lab 02/04/24 11:56 Completed Troponin I Q3H Lab 02/04/24 18:00 Ordered ECG Data Tracing #1: Attestation: I reviewed this ECG and interpreted as documented below: ECG Narrative: Sinus tachycardia with a ventricular rate of [address] changes concerning for ischemia. ECG initial impression date: 02/04/24 ECG initial impression time: 12:04 [facility] Narrative Medical Decision Narrative: In summary, this patient is a 38-year-old male presenting to the Emergency Department for evaluation of chest pain and generally feeling unwell for about a week. Differential diagnoses considered include but are not limited to pneumonia, pleurisy, ACS, dysrhythmia, viral syndrome. Ruling out the most morbid conditions drove assessment. It should be noted patient's history includes testicular cancer status posttreatment as well as anxiety which may or may not be at goal therapy. This complicates all aspects of care by increasing patient's risk for morbidity. I reviewed patient's past medical records and noted his evaluations for atypical chest pain and anxiety in the past. On exam, the patient is lying in bed in no acute distress. He is anxious appearing. He is mildly tachycardic, but otherwise vitals are reassuring on cardiac telemetry. Cardiopulmonary dam is reassuring. Workup included CBC, BMP, BNP, troponin, D-dimer, chest x-ray, and viral swab. EKG obtained is reassuring with the exception of sinus tachycardia. He was given a bolus of IV fluids. I independently interpreted x-ray prior to the radiologist read and noted no acute focal consolidation, pneumothorax, or other concern. Please see their read for final interpretation. Labs were obtained that demonstrated negative troponin, negative D-dimer, and no acutely concerning abnormalities otherwise. Kidney function around the patient's baseline. On reassessment, the patient is resting currently and states he is feeling much better. He is no longer anxious. He does note that he has intermittent symptoms of acid reflux as well as anxiety, which could be causing his chest pain. Chest pain workup is reassuring and points towards a noncardiac cause. I advised that we could try PPI to help with his acid reflux symptoms. Patient expressed understanding and agreement. 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
[2024-02-04 14:29] LABS: Troponin I < 0.01 ng/ml (0.00-0.034)
[2024-02-04 14:46] LABS: Hemoglobin 17.8 g/dL (14.1-18.0)
== END 2024-02-04 15:09 | disposition home or self-care (01) ==
PROVIDERS: Emergency Provider Emergency Medicine; PCP Nurse Practitioner Family
DX: R07.9 Chest pain, unspecified (principal); R00.0 Tachycardia, unspecified; K21.9 Gastro-esophageal reflux disease without esophagitis; F41.9 Anxiety disorder, unspecified; Z85.47 Personal history of malignant neoplasm of testis; Z92.21 Personal history of antineoplastic chemotherapy; F17.210 Nicotine dependence, cigarettes, uncomplicated
CPT/HCPCS: 71045; 80048; 83880; 84484; 85025; 85378; 87636; 93005; 96360; 99284; J7120

== ENCOUNTER → 2024-02-18 08:32 | Outpatient (CLI) | payer BC, SELFPAY | LOC: SL 08:33 | PROVIDERS: PCP Nurse Practitioner Family; Visit Provider Nurse Practitioner Family | DX: G47.33 Obstructive sleep apnea (adult) (pediatric) (principal); G47.36 Sleep related hypoventilation in conditions classified elsewhere; I10 Essential (primary) hypertension; I48.91 Unspecified atrial fibrillation | CPT/HCPCS: G0399 ==

== ENCOUNTER 2025-06-23 23:43 | Emergency (ER) | payer MEDICAID, SELFPAY ==
--- NOTE | 2025-06-23 23:44 | ECG_ITS ---
APPROVED REPORT Exam: Resting ECG HR:75 bpm ECG Measurements Heart Rate 75 AXES IA 152 P 48 QRSd 89 QRS 65 QT 389 T 48 QTc 418 Conclusion SINUS RHYTHM NORMAL ECG Electronically signed by : STEPHEN VENCES, 06/24/2025 07:09:56
--- OUTSIDE RECORDS SUMMARY | 2025-06-23 23:47 | XMS_ITS | Clinical Summary ---
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 21 tablet 10/08/2021 Active busPIRone (Buspar) 10 MG tablet 02/13/2024 Active pantoprazole (Protonix) 40 MG EC tablet 02/04/2024 Active DULoxetine (Cymbalta) [address] capsule Take 1 capsule (60 mg) by mouth daily. 04/08/2024 Active metoprolol succinate XL (Toprol-XL) 100 MG 24 hr tablet Take 1 tablet (100 mg) by mouth daily. 04/08/2024 Active Active Problems Problem Noted Date Diagnosed Date Tobacco use disorder 11/14/2021 GERD (gastroesophageal reflux disease) Overview (06/11/2021): -BID PPI Hypertension 06/11/2021 Overview (06/11/2021): Hold home amlodipine Duodenal ulcer with hemorrhage 06/11/2021 Overview (06/13/2021): - Continue pain control - Follow CBCs and monitor stool consistency/color - PPI bid - NG to suction, monitor output to assess for recurrent bleeding - Strict I/O, resuscitation based on BP and UOP Tachycardia 06/11/2021 Overview (06/11/2021): Allow tachycardia to 160s-170s due to violation of sympathetic chain during retroperitoneal lymph node dissection History of chemotherapy 06/11/2021 Overview (06/11/2021): Abnormal LFTs resulting from prior chemotherapy Thrombocytopenia 06/11/2021 Overview (06/13/2021): 06/12 TEG normal Hyperbilirubinemia 06/11/2021 Transaminitis 06/11/2021 Overview (06/11/2021): Secondary to history of chemotherapy Testicular cancer 02/16/2021 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 02/02/2021 Overview (06/13/2021): S/p retroperitoneal lymph node dissection 06/11 Monitoring for retroperitoneal bleeding/other complications Cancer Overview (11/03/2024): last chemo 03/20/21 Dental disease Overview (11/03/2024): chipped teeth two front 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 Hydronephrosis of left kidney Retroperitoneal mass Testicle cancer Testicular tumor Resolved Problems Problem Noted Date Diagnosed Date Resolved Date Second hand smoke exposure 11/14/2021 0 05/29/2025 Hematochezia 06/11/2021 05/29/2025 Overview (06/11/2021): Fluid/PRBC resuscitation as needed Hyperkalemia 06/11/2021 06/13/2021 Acute kidney injury 06/11/2021 05/29/20 25 Overview (06/11/2021): Cr 1.75 Hyperglycemia 06/11/2021 06/13/2021 PONV (postoperative nausea and vomiting) 05/29/2025 Encounters Date Type Department Care Team Description 05/27/2025 Telephone [facility] [address] [place] [address] Susan Santacruz 05/25/2025 Orders Only [facility] [address] [place] [address] Mena Brice, RN Malignant neoplasm of testicle, unspecified laterality, unspecified whether descended or undescended (CMS/HCC) (Primary Dx) 05/24/2025 Telephone [facility] [address] [place] [address] Susan Santacruz PA from Last 3 Months Family History Medical History Relation Name Comments Hypertension Other Relation Name Status Comments Other Social History Tobacco Use Types Packs/Day Years Used Date Smoking Tobacco: Every Day Cigarettes Smokeless Tobacco: Never Alcohol Use Standard Drinks/Week Comments No 0 (1 standard drink = 0.6 oz pur e alcohol) PHQ-2 Answer Date Recorded Patient Health Questionnaire-2 Score 0 04/21/2024 Sex and Gender Information Value Date Recorded Sex Assigned at Male 04/16/2021 6:32 AM EDT Legal Sex Male 8:00 PM EDT Gender Identity Male 04/16/2021 6:32 AM EDT Sexual Orientation Straight 06/11/2021 8: 31 AM EDT Last Filed Vital Signs Vital Sign Reading Time Taken Comments Blood Pressure 137/100 11/03/2024 11:35 AM EST Pulse 66 11/03/2024 11:35 AM EST Temperature 36.7 C (98.1 F) 11/03/2024 11:35 AM EST Respiratory Rate 18 11/03/2024 11:35 AM EST Oxygen Saturation 94% 11/03/2024 11:35 AM EST Inhaled Oxygen Concentration - - Weight 107 kg (235 lb 14.3 oz) 11/03/2024 11:35 AM EST Height 172.7 cm (5' 8 ) 11/03/2024 11:35 AM EST Body Mass Index 35.87 11/03/2024 11:35 AM EST Plan of Treatment Upcoming Encounters Date Type Department Care Team (Late st Contact Info) Description 07/27/2025 11:00 AM EST Appointment [facility] [address] [place] [address] 07/27/2025 2:40 PM EST Office Visit [facility] [address] [place] [address] Susan Santacruz PA [address] [place] [address] Health Maintenance Due Date Last Done Comments [facility]-/Child/Adol SDOH Screenings 1987 [facility]-CDTCA-22 Vaccine (#1) 1992 [facility]-Varicella Vaccines (1 of 2 - 13+ 2-dose series) 2000 [facility]-DTaP,Tdap,and Td Vaccines (2 - Tdap) 05/16/2004 05/15/2004 [facility]- SDOH Screenings 2005 [facility]-Adult SDOH Screenings 2005 [facility]-Hepatitis B Vaccines (1 of 3 - 19+ 3-dose series) 2006 [facility]-Pneumococcal Vaccine: Pediatrics (0 to 5 Years) and At-Risk Patients (6 to 49 Years) (1 of 2 - PCV) 2006 [facility]-Zoster Vaccines (1 of 2) 2006 HPV Vaccines (1 - Risk 3-dose SCDM series) 2014 [facility]-Depression Screening 04/21/2025 04/21/2024, 0812/2020 [facility]-Influenza Vaccine (#1) 2025 [facility]-HIV Screening Completed 01/08/2021 [facility]-Hepatitis C Screening Completed 06/14/2021, 11/2020 [facility]-Obesity Intervention Completed 025, 04/21/2024, 12/10/2023, Additional history exists [facility]-HIB Vaccines Aged Out No longer e ligible based on patient's age to complete this topic [facility]-Hepatitis A Vaccines Aged Out No longer eligible based on patient's age to complete this topic [facility]-IPV Vaccines Aged Out No longer e ligible based on patient's age to complete this topic [facility]-Rotavirus Vaccines Aged Out No lo nger eligible based on patient's age to complete this topic Medical Devices Implanted Type Area Line Producer Device Identifier Shelf Expiration Date Model / Serial / Lot Stent Left: Ureter Port Right: Chest Procedures Procedure Name Priority Date/Time Associated Diagnosis Comments ACUTE HEPATITIS PANEL Routine 06/14/2021 10:16 AM EDT HIV 1/2 ANTIBODY/ANTIGEN SCREEN WITH REFLEX TO HIV I/II DIFFERENTIATION Routine 01/08/2021 8:35 PM EDT from Last 3 Months or Most Recently Relevant to Health Maintenance Results * Hepatitis panel, acute (06/14/2021 10:16 AM EDT) Hepatitis B Surf Antigen Negative Negative 06/15/2021 5:09 PM EDT [facility] Hepatitis C Antibody Negative Negative 06/15/2021 5:09 PM EDT [facility] Hepatitis A Antibody IgM Negative Negative 06/15/2021 5:09 PM EDT [facility] Hepatitis B Core Antibody IgM Negative Negative 06/15/2021 5:09 PM EDT [facility] Blood Venous blood specimen / Unknown Venipuncture / Unknown 06/14/2021 10:16 AM EDT 06/14/2021 10:21 AM EDT Mark Menon MD LAB BLOOD ORDERABLES Final Res [facility] [address] [place] [address] * HIV 1 & 2 Antibody/Antigen Screen (01/08/2021 8:35 PM EDT) HIV 1 Result NONREACTIVE Screening for HIV 1 and 2 antibodies is NONREACTIVE. No confirmatory testing is required. [facility]QUEST 01/08/2021 8:35 PM EDT 01/08/2021 8:44 PM EDT us Basilio Ferguson LAB BLOOD ORDERABLES Final Resul t SUNQUEST from Last 3 Months or Most Recently Relevant to Health Maintenance Insurance [facility] MEDICAID Advance Directives * Full Code (Latest Code Status on File) Date Activated Date Inactivated Comments 06/11/2021 7:30 PM 06/19/2021 5:53 PM Question Answer Comments Patient has decision-making capacity? Yes * Full Code Date Activated Date Inactivated Comments 03/15/2021 11:45 AM 03/19/2021 10:51 PM Question Answer Comments Patient has decision-making capacity? Yes * Full Code Date Activated Date Inactivated Comments 02/22/2021 1:31 PM 02/27/2021 1:05 PM Question Answer Comments Patient has decision-making capacity? Yes Care Teams Brushing Machine Operator Relationship Specialty Start Date End Date Diana Rosa, CYNTHIA [address] [place] [address] PCP - General 01/19/21 Ronald August MD [address] [place] [address] Surgeon Urology 07/11/21 Steven Brewer MD [address] [place] [address] Consulting Physician Medical Oncology 07/11/21
--- OUTSIDE RECORDS SUMMARY | 2025-06-23 23:47 | XMS_ITS | Encounter Summary ---
Author Organization [facility] Address [address] [place] [address] Care Team Providers Care Automotive Airconditioning Mechanic Name Role Phone Diana Rosa CYNTHIA Primary Care Provider [phone] Ronald August MD Unavailable [phone] Steven Brewer MD Unavailable Encounter Details Date Type Department Care Team (Late st Contact Info) Description 02/02/2021 Abstract [facility] Pulmonary Function Testing [address] [place] [address] Pulmonary, Nurse, RN [address] [place], [place] [id number] Social History Tobacco Use Types Packs/Day Years Used Date Smoking Tobacco: Every Day Alcohol Use Standard Drinks/Week Comments No 0 (1 standard drink = 0.6 oz pur e alcohol) Sex and Gender Information Value Date Recorded Sex Assigned at Male 04/16/2021 6:32 AM EDT Legal Sex Male 8:00 PM EDT Gender Identity Male 04/16/2021 6:32 AM EDT Sexual Orientation Straight 06/11/2021 8: 31 AM EDT documented as of this encounter Plan of Treatment Upcoming Encounters Date Type Department Care Team (Late Contact Info) Description 07/27/2025 11:00 AM EST Appointment [facility] [address] [place] [address] 07/27/2025 2:40 PM EST Office Visit [facility] [address] [place] [address] Susan Santacruz PA [address] [place] [address] documented as of this encounter Visit Diagnoses Not on filedocumented in this encounter Additional Health Concerns Infection Onset Date Last Indicated Resolved Time COVID-19 Rule-Out 06/14/2021 06/14/2021 06/14/2021 5:02 PM EDT documented as of this encounter Care Teams Automotive Airconditioning Mechanic Relationship Specialty Start Date End Date Diana Rosa, LIFE SKILLS COACH [address] [facility] [address] [place] [address] PCP - General 01/19/21 Ronald August MD [address] [place] [address] Surgeon Urology 07/11/21 Steven Brewer MD [address] [facility] [address] [place] [address] Consulting Physician Medical Oncology 07/11/21 documented as of this encounter
--- OUTSIDE RECORDS SUMMARY | 2025-06-23 23:47 | XMS_ITS | Encounter Summary ---
Author Organization [facility] Address [address] [place] [address] Care Team Providers Care Paper Cone Drying Machine Operator Name Role Phone Diana Rosa CYNTHIA Primary Care Provider [phone] Ronald August MD Unavailable [phone] Steven Brewer MD Unavailable Encounter Details Date Type Department Care Team (Late st Contact Info) Description 05/24/2025 Telephone [facility] [address] [place] [address] Susan Santacruz PA [address] [facility] [address] [place] [address] Social History Tobacco Use Types Packs/Day Years [...] AM EDT documented as of this encounter Miscellaneous Notes * Telephone Encounter - Judy Lowe - 05/24/2025 12:56 PM EDT Patient Phone Message Reason for Call: Patients mother is calling to get him scheduled for scans and labs for his 6 month follow up. Best contact number and optimal time of day to reach caller: [phone] Please call with appt day and time. Note: Please do not reply to this message. Follow-up communication and further actions as a result of this message need to be communicated with the patient directly, if the patient is not active onMyChart. If the patient is active on MyChart, they will receive notification of the communication/outcome via Sunpre[employer]hart. documented in this encounter Plan of Treatment Upcoming Encounters Date Type Department Care Team (Late st Contact Info) Description 07/27/2025 11:00 AM EST Appointment [facility] [address] [place] [address] 07/27/2025 2:40 PM EST Office Visit [facility] [address] [place] [address] Susan Santacruz PA [address] [address] documented as of this encounter Visit Diagnoses Not on filedocumented in this encounter Additional Health Concerns Assessment Noted Time A fall risk assessment has been complete d for the patient 04/21/2024 2:45 PM EDT A Body Mass Index follow-up plan has been documented for the patient 11/03/2024 3:14 PM EST documented as of this encounter Care Teams Paper Cone Drying Machine Operator Relationship Specialty Start Date End Date Diana Rosa APRN [address] [facility] [address] [place] [address] PCP - General 01/19/21 Ronald August MD [address] [facility] [address] [place] [address] Surgeon Urology 07/11/21 Steven Brewer MD [address] [facility] [address] [place] [address] Consulting Physician Medical Oncology 07/11/21 documented as of this encounter
--- OUTSIDE RECORDS SUMMARY | 2025-06-23 23:47 | XMS_ITS | Encounter Summary ---
Author Organization [facility] Address [address] [place] [address] Care Team Providers Care Cemetery Keeper Name Role Phone Diana Rosa CYNTHIA Primary Care Provider [phone] Ronald August MD Unavailable [phone] Steven Brewer MD Unavailable Reason for Referral * Imaging (Routine) - Pending Review Specialty Diagnoses / Procedures Referred By Contac t Referred To Contact Radiology Diagnoses Malignant neoplasm of testicle, unspecified laterality, unspecified whether descended or undescended Procedures CT Abdomen Pelvis w IV Contrast Susan Santacruz PA [address] [employer] [address] [address] Phone: tel: fax: Referral ID Status Reason Start Date Expiration Date V isits Requested Visits Authorized [id number] Pending Review 05/25/2025 11/24/2026 1 1 * Imaging (Routine) - Pending Review Specialty Diagnoses / Procedures Referred By Contac t Referred To Contact Radiology Diagnoses Malignant neoplasm of testicle, unspecified laterality, unspecified whether descended or undescended Procedures CT Chest w IV Contrast Susan Santacruz PA [address] [employer] [address] [address] Phone: tel: fax: Referral ID Status Reason Start Date Expiration Date V isits Requested Visits Authorized [id number] Pending Review 05/25/2025 11/24/2026 1 1 Encounter Details Date Type Department Care Team (Late Contact Info) Description 05/25/2025 Orders Only [facility] [address] [place] [address] Mena Brice, RN [id number] Malignant neoplasm of testicle, unspecified laterality, unspecified whether descended or undescended (CMS/HCC) (Primary Dx) Social History Tobacco Use Types Packs/Day Years [...] Info) Description 07/27/2025 11:00 AM EST Appointment [facility] [address] [place] [address] 07/27/2025 2:40 PM EST Office Visit [facility] [address] [place] [address] Susan Santacruz PA [address] [place] [address] Scheduled Orders Name Type Priority Associated Diagnoses Orde r Schedule CT Chest w IV Contrast Imaging Routine Malignant neoplasm of testicle, unspecified laterality, unspecified whether descended or undescended (CMS/HCC) Expected: 05/25/2025 (Approximate), Expires: 11/26/2026 CT Abdomen Pelvis w IV Contrast Imaging Routine Malignant neoplasm of testicle, unspecified laterality, unspecified whether descended or undescended (CMS/HCC) Expected: 05/25/2025 (Approximate), Expires: 11/26/2026 documented as of this encounter Visit Diagnoses Diagnosis Malignant neoplasm of testicle, unspecified laterality, unspecified whether descended or undescended- Primary documented in this encounter Additional Health Concerns Assessment Noted Time A fall risk assessment has been complete d for the patient 04/21/2024 2:45 PM EDT A Body Mass Index follow-up plan has been documented for the patient 11/03/2024 3:14 PM EST documented as of this encounter Care Teams Cemetery Keeper Relationship Specialty Start Date End Date Marilyn Rosafaviola Arroyo, IRRIGATOR GRAVITY FLOW [address] [facility] [address] [place] [address] PCP - General 01/19/21 Ronald August MD [address] [place] [address] Surgeon Urology 07/11/21 Steven Brewer MD [address] [place] [address] Consulting Physician Medical Oncology 07/11/21 documented as of this encounter
--- OUTSIDE RECORDS SUMMARY | 2025-06-23 23:47 | XMS_ITS | Encounter Summary ---
Author Organization [facility] Address [address] [place] [address] Care Team Providers Care Supervisor Of Officials Name Role Phone Diana Rosa CYNTHIA Primary Care Provider [phone] Ronald August MD Unavailable [phone] Steven Brewer MD Unavailable Encounter Details Date Type Department Care Team (Late st Contact Info) Description 08/20/2021 Lab Requisition [facility] [address] [place] [address] Guilherme Ly MD [address] 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 Social History Tobacco Use Types Packs/Day Years Used Date Smoking Tobacco: Every Day Cigarettes Smokeless Tobacco: Never Alcohol Use Standard Drinks/Week Comments No 0 (1 standard drink = 0.6 oz pur e alcohol) PHQ-2 Answer Date Recorded Patient Health Questionnaire-2 Score 0 07/16/2021 Sex and Gender Information Value Date Recorded Sex Assigned at Male 04/16/2021 6:32 AM EDT Legal Sex Male 8:00 PM EDT Gender Identity Male 04/16/2021 6:32 AM EDT Sexual Orientation Straight 06/11/2021 8: 31 AM EDT documented as of this encounter Plan of Treatment Upcoming Encounters Date Type Department Care Team (Late st Contact Info) Description 07/27/2025 11:00 AM EST Appointment [facility] 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 GASTRIC BX - MINIMAL CHRONIC GASTRITIS WITH FEATURES SUGGESTIVE OF SUPERFICIAL EROSION AND A CHEMICAL GASTRITIS (REACTIVE GASTROPATHY). - HELICOBACTER ARE NOT IDENTIFIED ON ROUTINE STAIN. - NO EVIDENCE OF INTESTINAL METAPLASIA OR MALIGNANCY. 08/21/2021 5:10 PM EST [facility] at 1710 EST Clinical Information History of duodenal ulcer 08/21/2021 5:10 PM EST [facility] Gross Description A. GASTRIC BX The specimen is received in formalin labeled gastric BX , and consists of three pink-mantilla soft tissue fragments ranging from 0.2-0.5 cm in greatest dimension. Entirely submitted in cassette A1. 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 [address] [place] [address] Surgeon Urology 07/11/21 Steven Brewer MD [address] [facility] [address] [place] [address] Consulting Physician Medical Oncology 07/11/21 documented as of this encounter
--- OUTSIDE RECORDS SUMMARY | 2025-06-23 23:47 | XMS_ITS ---
Author Organization [facility] Address [address] [place] [address] Care Team Providers Care Wrecking Mechanic Name Role Phone Diana Rosa CYNTHIA Primary Care Provider [phone] Ronald August MD Unavailable [phone] Steven Brewer MD Unavailable Active Problems Problem Noted Date Diagnosed Date [...] kidney Retroperitoneal mass Testicle cancer Testicular tumor Current Treatment and Therapy Plans No current plan information found. Past Treatment and Therapy Plans Oncology Treatment Plan Name Start Date Discontinue Date Treatment Medications Discontinue Reason Plan Provider Cycles VIP: Etoposide + Ifosfamide + Cisplatin Daily x 5 Every 21 Days 1 10/09/2021 CISplatin (Platinol) IVPBetoposide (Vepesid) IVPBifosfamide (Ifex) IVPBmesna (Mesnex) Therapy Complete Steven Brewer MD 2 of 2 cycles completed BEP: Bleomycin Weekly x 3 / Etoposide Daily x 5 / CISplatin Daily x 5 Every 21 Days 1 02/14/2021 bleomycin (Bleocin)CISplat in (Platinol)Etopos [place] (Toposar) Toxicity/Comp lication Steven Brewer MD 2 of 4 cycles completed Lifetime Dose Tracking * Chemical Lifetime Dose Automatic Entry Manual Entr y Fluoro Time 0.17 minutes 0.17 minutes 0 minutes Air Kerma 0.6 mGy 0.6 mGy 0 mGy Resolved Problems Problem Noted Date Diagnosed Date Resolved Date Second hand smoke exposure 11/14/2021 0 05/29/2025 Hematochezia 06/11/2021 05/29/2025 Overview (06/11/2021): Fluid/PRBC resuscitation as needed Hyperkalemia 06/11/2021 06/13/2021 Acute kidney injury 06/11/2021 05/29/20 25 Overview (06/11/2021): Cr 1.75 Hyperglycemia 06/11/2021 06/13/2021 PONV (postoperative nausea and vomiting) 05/29/2025
--- OUTSIDE RECORDS SUMMARY | 2025-06-23 23:47 | XMS_ITS | Encounter Summary ---
Author Organization Healthcare Address [address] [place] [address] Care Team Providers Care Benzene Still Utility Operator Name Role Phone Diana Rosa CYNTHIA Primary Care Provider [phone] Ronald August MD Unavailable [phone] Steven Brewer MD Unavailable Encounter Details Date Type Department Care Team (Late st Contact Info) Description 05/27/2025 Telephone [facility] [address] [place] [phone] [place] [address] Social History Tobacco Use Types Packs/Day Years [...] encounter Miscellaneous Notes * Telephone Encounter - Sushil Akua Babs - 05/27/2025 12:52 PM EDT 05/27 Called patient's mother: Aliyah Requested 06/17 & 06/20 dates unavailable R/s 06/08 provider appt to 07/27 *next available afternoon appt Sent CT Scan r/s request to Radiology Aliyha confirmed new date and will check MyChart * Telephone Encounter - AntonHemamariah Brice - 05/27/2025 12:29 PM EDT Patient Phone Message Reason for Call: Mr. Luevano mom is calling on his behalf to R/S his CT appt/Dr. Santacruz appt, she is asking if he can be R/S to 06/17 or 06/20 due to transportation issues anytime after 11:00 please Best contact number and optimal time of day to reach caller: [phone] Aliyah (pt mom) Note: Please do not reply to this message. Follow-up communication and further actions as a result of this message need to be communicated with the patient directly, if the patient is not active onMyChart. If the patient is active on MyChart, they will receive notification of the communication/outcome via [employer]. documented in this encounter Plan of Treatment Upcoming Encounters Date Type Department Care Team (Late st Contact Info) Description 07/27/2025 11:00 AM EST Appointment [facility] [address] [place] [address] 07/27/2025 2:40 PM EST Office Visit [facility] [address] [place] [address] Susan Santacruz PA [address] [place] [id number] documented as of this encounter Visit Diagnoses Not on filedocumented in this encounter Additional Health Concerns Assessment Noted Time A fall risk assessment has been complete d for the patient 04/21/2024 2:45 PM EDT A Body Mass Index follow-up plan has been documented for the patient 11/03/2024 3:14 PM EST documented as of this encounter Care Teams Benzene Still Utility Operator Relationship Specialty Start Date End Date Marilyn Rosai Dina, THERMAL ENGINEER [address] [facility] [address] [phone] PCP - General 01/19/21 Ronald August MD [address] [facility] [address] [place] [address] Surgeon Urology 07/11/21 Steven Brewer MD [address] [facility] [address] [place] [address] Consulting Physician Medical Oncology 07/11/21 documented as of this encounter
--- NOTE | 2025-06-23 23:53 | XR_ITS ---
PROCEDURE INFORMATION: Exam: XR Chest Exam date and time: 06/23/2025 11:55 PM Age: 39 years old Clinical indication: Pain; Chest pressure; Additional info: Chest pain TECHNIQUE: Imaging protocol: Radiologic exam of the chest. Views: 2 views. COMPARISON: CR XR CHEST PORTABLE 02/04/2024 12:08 PM FINDINGS: Tubes, catheters and devices: Right IJ Port-A-Cath tip in the SVC. Lungs: Unremarkable. No consolidation. Pleural spaces: Unremarkable. No pleural effusion. No pneumothorax. Heart/Mediastinum: Unremarkable. No cardiomegaly. Bones/joints: Unremarkable. IMPRESSION: No acute findings.
[2025-06-23 23:59] LABS: Hematocrit 51.7 % (42.0-52.0); Immature Granulocytes % 0.4 %; Mean Corpuscular HGB Conc 35.0 g/dL (31.8-35.4); Mean Corpuscular Hemoglobin 31.0 pg (27.0-31.2); Mean Corpuscular Volume 88.5 fl (80-94); Nucleated Red Blood Cells % 0 %; Platelet Count 338 K/mm3 (142-424); Red Blood Count 5.84 M/mm3 (4.60-6.20); Red Cell Distribution Width-SD 42.9 fL; White Blood Count 12.2 K/mm3 (4.8-10.8)
[2025-06-24] VITALS (7 sets, daily range): BP systolic 125–168; BP diastolic 84–116; PULSE 63–79; RESP 10–20; TEMP 36.7–37; O2SAT 94–98; BMI 34.9
[2025-06-24] MEDS: ASPIRIN 81MG CHEWABLE TABLET 324 MG PO
[2025-06-24] MEDS: BELLADONNA ALKALOIDS 60 ML ML PO
[2025-06-24] MEDS: KETOROLAC 15MG/ML VIAL 15 MG IV (00:01)
[2025-06-24 00:04] LABS: Hemoglobin 18.1 g/dL (14.1-18.0)
[2025-06-24 00:09] LABS: Alanine Aminotransferase 44 U/L (12-78); Albumin Level 5.0 g/dl (3.5-5.0); Anion Gap 14.9 mEq/L (5-15); Aspartate Amino Transferase 31 U/L (17-59); Bilirubin,Total 1.0 mg/dl (0.2-1.3); Blood Urea Nitrogen 24 mg/dl (9-20); Calcium 9.6 mg/dl (8.4-10.2); Carbon Dioxide 24 mmol/L (22.0-30.0); Chloride 104 mmol/L (98-107); Creatinine Clearance Estimated 99 mL/min (50-200); Creatinine,Serum 1.50 mg/dl (0.66-1.25); Estimated Glomerular Filt Rate 53 ml/min (>60); GFR (African American) 64 ML/MIN (>60); Glucose 108 mg/dl (74-100); Potassium 3.9 mmoL/L (3.5-5.1); Sodium 139 mmol/L (136-145); Total Protein,Serum 8.1 g/dl (6.3-8.2)
[2025-06-24 00:10] LABS: Albumin/Globulin Ratio 1.6 (1.1-1.8); Alkaline Phosphatase 95 U/L (38-126); Globulin 3.1 g/dL (1.3-3.2)
--- NOTE | 2025-06-24 00:38 | HMH.EDCP ---
Discharge Plan Disposition Patient Disposition: Home, Self-Care Condition: Good Prescriptions Prescriptions: No Action metoprolol succinate 50 mg Tablet Extended Release 24 Hr 50 mg PO DAILY duloxetine 60 mg Capsule,Delayed Release(Dr/Ec) 60 mg PO DAILY pantoprazole 40 mg tablet,delayed release (DR/EC) 40 mg PO DAILY Qty: 30 1RF Referrals Follow up/Referrals: Provider,Referral, [Primary Care Provider, Medical] - See instructions Activity Restrictions/Add. Instructions Additional Instructions/Restrictions: You were evaluated in the ER and are believed to be appropriate for discharge at this time. Continue taking your home medications as previously prescribed. Follow-up with cardiology Friday at 9 AM as scheduled. Also follow-up with your primary care doctor in a few days for reevaluation and to discuss your blood pressure. Return to the ER with any new, worsening, or otherwise concerning symptoms. Clinical Impressions Clinical Impression: Chest pain, Anxiety Print Language Print Language: Liberian Discharge ED Provider: Brittney Kulkarni General Chief Complaint: Chest Pain Stated Complaint: Chest Pain Time Seen by Provider: 06/23/25 23:55 Mode of Arrival: Ambulatory Source of Information: Patient Description of Symptoms (Recalled from ER Triage Doc. by RN): PT presents to the ED for the evaluation of CP. Pt stated the cp started at 1200 on 06/23/2025. PT took 81 mg aspirin at that time also. History of Present Illness HPI narrative: 39-year-old male presents to the ER complaining of chest pain. Patient has a history of previously treated cancer and has been in remission for over 2 years. He takes metoprolol for hypertension. He states because of his cancer history he was chronically worried so whenever he feels anything abnormal in his body he tends to fixate on it. He admits to anxiety. He states chest pain started nearly 12 hours prior to arrival. No headache or dizziness. Pain was sharp in the left side of the chest but he no longer feels this. He states he is still having nausea which has been persistent all day. No numbness, tingling, or weakness. No pain in the arms. No abdominal pain. No difficulty breathing, pleuritic pain, or hemoptysis. No history of blood clot. Patient took 81 mg of aspirin around noon when his pain started without improvement of symptoms. Denies fevers or chills, no swelling in the feet or legs. No other complaints or concerns. Related Data Home Medications ?Medication ?Instructions ?Recorded ?Confirmed duloxetine 60 mg capsule,delayed 60 mg PO DAILY 02/04/24 02/04/24 release metoprolol succinate 50 mg 50 mg PO DAILY 02/04/24 02/04/24 tablet,extended release 24 hr Previous Rx's ?Medication ?Instructions ?Recorded pantoprazole 40 mg tablet,delayed 40 mg PO DAILY #30 tabs 02/04/24 release Allergies Allergy/AdvReac Type Severity Reaction Status Date / Time No Known Allergies Allergy Verified 06/09/24 20:20 [facility] Disclaimer: The information contained in this section may have been updated after the patient was seen, as this information can be updated by other users. Medical History (Updated 06/24/25 @ 01:16 by Brittney Kulkarni MD) History of supraventricular tachycardia Generalized anxiety disorder History of hypertension History of gastroesophageal reflux (GERD) Depression Hypertension DANK (obstructive sleep apnea) Lymph node cancer Testicular cancer Surgical History H/O removal of testicle Social History Smoking Status: Current every day smoker tobacco type: cigarettes packs per day: 1 alcohol intake: never substance use type: marijuana current occupational status: other Travel in the last 8 weeks?: None Other Medical History Have you received the Flu Vaccine for this season: No Have you received the Pneumonia Vaccine: No ROS Obtained: Yes Systems reviewed as appropriate & no additional complaints except as documented Per HPI Physical Exam General General appearance: alert, in no apparent distress and anxious Comment: Nontoxic-appearing Head Head exam: atraumatic and normocephalic Eye Eye exam: Present PERRL and EOMI ENT ENT exam: Present mucous membranes moist Neck Neck exam: Present normal inspection and full ROM Chest Chest inspection: Present symmetric chest wall rise Respiratory Respiratory exam: Present normal lung sounds bilaterally; Absent respiratory distress, wheezes or stridor Cardiovascular Cardiovascular exam: Present regular rate and normal rhythm Abdominal Exam Abdominal exam: Present soft; Absent distention or tenderness Extremities Exam Extremities exam: Present full ROM and normal capillary refill; Absent edema Neurological Exam Neurological exam: Present alert and oriented X3; Absent motor sensory deficit Psychiatric Psychiatric exam: Present normal affect and normal mood Skin Skin exam: Present warm and dry HEART Score HEART Score HEART Score assessment performed?: Yes History (anamnesis): Slightly suspicious ECG: Normal Age: <45 years Risk factors: 1-2 risk factors Troponin: </= normal limit HEART Score: 1 Critical Care Critical Care Time Critical Care Time: No Medical Decision Making Medical Records Medical records reviewed: Yes I reviewed the patient's medical records. Ameya Inquiry Pt receiving controlled substance: No Vital Signs Vital Signs: 06/24/25 00:00 06/24/25 00:05 06/24/25 00:15 Temperature 98.1 F Temperature Source Oral Pulse Rate 74 79 Pulse Rate [Right] 79 Respiratory Rate 16 12 16 Blood Pressure 168/116 H 163/108 H Blood Pressure [Right Arm] 160/108 H Blood Pressure Mean 145 Blood Pressure Mean [Right Arm] 125 02 Sat by Pulse Oximetry 98 96 96 Oxygen Delivery Method Room Air Room Air 06/24/25 00:16 06/24/25 00:30 06/24/25 00:39 Temperature Temperature Source Pulse Rate 79 69 63 Pulse Rate [Right] Respiratory Rate 20 10 L Blood Pressure 126/84 126/84 Blood Pressure [Right Arm] Blood Pressure Mean 98 Blood Pressure Mean [Right Arm] 02 Sat by Pulse Oximetry 94 L 95 Oxygen Delivery Method Room Air 06/24/25 01:09 Temperature 98.6 F Temperature Source Pulse Rate 64 Pulse Rate [Right] Respiratory Rate 16 Blood Pressure 125/86 Blood Pressure [Right Arm] Blood Pressure Mean Blood Pressure Mean [Right Arm] 02 Sat by Pulse Oximetry Oxygen Delivery Method Room Air Lab Data Labs: Lab Results 06/23/25 23:45: WBC 12.2 H, RBC 5.84, Hgb 18.1 H, Hct 51.7, MCV 88.5, MCH 31.0, MCHC 35.0, RDW 13.2, Plt Count 338, MPV 9.4, Neut % (Auto) 62.9, Lymph % (Auto) 24.6, [place] % (Auto) 9.0, Eos % (Auto) 2.3, Baso % (Auto) 0.8, Neut # (Auto) 7.6, Lymph # (Auto) 3.0, [place] # (Auto) 1.1 H, Eos # (Auto) 0.3, Baso # (Auto) 0.1, Sodium 139, Potassium 3.9, Chloride 104, Carbon Dioxide 24, Anion Gap 14.9, BUN 24 H, Creatinine 1.50 H, Estimated Creat Clear 99, Estimated GFR 53 L, Est GFR ( Amer) 64, Glucose 108 H, Calcium 9.6, Total Bilirubin 1.0, AST 31, ALT 44, Alkaline Phosphatase 95, Troponin I < 0.01, Total Protein 8.1, Albumin 5.0, Globulin 3.1, Albumin/Globulin Ratio 1.6 06/23/25 23:45 06/23/25 23:45 Response Orders (Tests/Meds): ED MEDICATIONS Discontinued Medications Generic Name Dose Route Start Last Admin Trade Name Freq PRN Reason Stop Dose Admin Aspirin 324 mg 06/23/25 23:53 06/24/25 00:00 Aspirin 81mg Chewable Tablet PO 06/23/25 23:54 324 mg ONCE ONE Administration Belladonna Alkaloids 60 ml 06/23/25 23:53 06/24/25 00:00 Belladonna Alkaloids 60 Ml Ml PO 06/23/25 23:54 60 ml ONCE ONE Administration Ketorolac Tromethamine 15 mg 06/23/25 23:53 06/24/25 00:01 Ketorolac 15mg/Ml Vial IV 06/23/25 23:54 15 mg ONCE ONE Administration ORDERS Category Date Time Status XR chest 2V Stat Exams 06/23/25 23:53 Completed Complete Blood Count Auto Diff Stat Lab 06/23/25 23:45 Completed Comprehensive Metabolic Panel Stat Lab 06/23/25 23:45 Completed HIV Combo Stat Lab 06/24/25 00:08 Received Hepatitis C Ab Qual. W/ RFX Stat Lab 06/24/25 00:08 Received Troponin I Q3H Lab 06/24/25 03:00 Ordered Troponin I Q3H Lab 06/24/25 06:00 Ordered Troponin I Stat Lab 06/23/25 23:45 Completed MDM Narrative Medical Decision Narrative: In summary, this 39-year-old male with comorbidities described in the HPI presents to the emergency department today with concerns of sharp chest pain in the left side of the chest that is now absent but has persistent nausea with without vomiting at this time. On initial evaluation patient is hypertensive but otherwise hemodynamically stable, Afebrile, GCS 15, no neurologic deficits, cardiopulmonary exam benign, no peripheral edema, brisk capillary refill, no chest wall tenderness. Differential diagnosis includes but is not limited to ACS, I considered PE but patient is PERC negative and does not have any concerning symptoms, he does not have active cancer so he is no longer considered to be hypercoagulable. D-dimer not indicated. I considered pneumothorax, pneumonia, musculoskeletal etiology, anxiety, esophageal spasm, electrolyte abnormality, among others. Based on these concerns, I ordered hematologic and serum labs, cardiac workup, cardiac enzymes, chest x-ray. ECG personally interpreted demonstrates normal sinus rhythm, rate 75, normal axis, normal NE and QTc, no STEMI. Patient received aspirin, GI cocktail, Toradol for treatment. Labs personally reviewed demonstrate slight leukocytosis but no left shift, hemoglobin slightly elevated at 18.1 but nonactionable at this time, normal platelets, CMP nonactionable, patient's kidney dysfunction is at baseline, creatinine 1.5 unchanged from a year and a half ago, GFR stable. Patient tolerating oral intake. Troponin undetectably low less than 0.01 which is significantly reassuring in the setting of nonischemic ECG and patient's duration of symptoms. I do not believe serial troponin is indicated at this time. Chest x-ray personally interpreted does not demonstrate acute thoracic abnormality, see radiology read for final interpretation. On reassessment patient has had improvement of symptoms and is resting comfortably at this time. Tolerating oral intake. I believe he is appropriate for discharge. He is comfortable with this plan. I provided the patient follow-up with cardiology for outpatient reevaluation. Appointment information was provided. Patient was given instructions on symptomatic management, follow up instructions, and return precautions for the emergency department. Patient indicated understanding and was discharged in stable condition.
[2025-06-24 00:41] LABS: Troponin I < 0.01 ng/ml (0.00-0.034)
[2025-06-24 02:49] LABS: Hepatitis C Ab Qual. W/ RFX NEGATIVE (Negative)
== END 2025-06-24 01:28 | disposition home or self-care (01) ==
PROVIDERS: Emergency Provider Emergency Medicine
DX: R07.9 Chest pain, unspecified (principal); R11.0 Nausea; F41.1 Generalized anxiety disorder; F17.210 Nicotine dependence, cigarettes, uncomplicated
CPT/HCPCS: 71046; 80053; 84484; 85025; 86803; 87389; 93005; 96374; 99285; J1885

== ENCOUNTER 2025-06-27 09:20 | Outpatient (CLI) | payer MEDICAID, SELFPAY | END 2025-06-27 23:59 | disposition home or self-care (01) | LOC: RT 09:21 | PROVIDERS: Visit Provider Physician Assistant | DX: I49.1 Atrial premature depolarization (principal); I49.3 Ventricular premature depolarization; R19.04 Left lower quadrant abdominal swelling, mass and lump; Z86.79 Personal history of other diseases of the circulatory system | CPT/HCPCS: 93270 ==

== ENCOUNTER 2025-07-28 11:17 | Outpatient (CLI) | payer MEDICAID, SELFPAY ==
[2025-07-28 11:30] VITALS: BP 156/107; BP 184/101; PULSE 105; RESP 16
--- NOTE | 2025-07-28 11:30 | CA_ITS ---
APPROVED REPORT Exam: Exercise Treadmill Technologist: Inga Fu Stress Nurse: Salma Terrazas Ht: 5 ft 8 in Wt: 222 lbs BSA: 2.14 m2 HR: 105 bpm BP: 156/107 mmHg Rhythm: Sinus Rhythm Medical History Medical History: HTN, Smoking Medications: Duloxetine, Metoprolol Succinate ER Allergies: No known drug allergies Cardiac Risk Factors: HTN, Smoking Stress Test Details Test: Exercise stress testing was performed using a Harish protocol. HR Resting HR: 105 bpm Max Heart Rate (APMHR): 183.794779 bpm Max HR Achieved: 171 bpm Target HR (85% APMHR): 155.660592 bpm % of APMHR: 93.44 Recovery HR: 110 bpm BP Resting BP: 156.0/107.0 mmHg Max BP: 184.0/101.0 mmHg Recovery BP: 161.0/97.0 mmHg ECG Resting ECG: Sinus Rhythm Clinical Reason for Termination: Dyspnea, Dizziness Exercise duration: 6:16 min Highest Stage Achieved: Stage 3: 3.4 mph at 14% grade. Stress ECG Conclusion Max HR: 171 % of PM: 93% Max BP: 184/101 Mets: 7.4 Test stopped due to: Dyspnea Patient requested to stop test in stage 3 due to dyspnea and dizziness Patient walked 6:16 minutes Patient was nauseas in recovery Nausea subsided 5 minutes into recovery Less than 0.5mm upsloping ST segment changes Electronically signed by : Vida Navas MD 07/28/2025 15:18:54
== END 2025-07-28 23:59 | disposition home or self-care (01) ==
LOC: RT 11:18
PROVIDERS: Visit Provider Physician Assistant
DX: R07.9 Chest pain, unspecified (principal); R06.00 Dyspnea, unspecified
CPT/HCPCS: 93017; 93018

== ENCOUNTER 2025-08-17 12:13 | Outpatient (CLI) | payer MEDICAID, SELFPAY ==
[2025-08-17 12:51] LABS: Blood Urea Nitrogen 21 mg/dl (9-20); Creatinine,Serum 1.60 mg/dl (0.66-1.25); Estimated Glomerular Filt Rate 49 ml/min (>60); GFR (African American) 59 ML/MIN (>60)
--- NOTE | 2025-08-17 13:00 | CT_ITS ---
FINAL REPORT TECHNIQUE: Axial images of the chest was performed with and without contrast by computed tomography. Sagittal and coronal reconstructed images were obtained and reviewed. This study was performed with techniques to keep radiation doses as low as reasonably achievable, (ALARA). Individualized dose reduction techniques using automated exposure control or adjustment of mA and/or kV according to the patient's size were employed. CLINICAL HISTORY: cp, HX TESTICULAR AND SARCOMA CANCER COMPARISON: 03/28/2022 FINDINGS: There is a right upper anterior chest port that terminates in the SVC. There is no evidence of mediastinal mass or adenopathy. The mediastinal vasculature is well-opacified. The heart is normal in size. There is no pleural or pericardial effusion. Again identified is a small nodule in the anterior right upper lobe on image 27, series 8. This has been stable since 2021. The lungs are otherwise clear. IMPRESSION: Stable right upper lobe nodule, favor benign. Reviewed, Interpreted and Dictated by Jerry Quiros MD Transcribed by Xuan Cain Authenticated and [facility]
--- NOTE | 2025-08-17 13:00 | CT_ITS ---
FINAL REPORT TECHNIQUE: Thin section axial images were obtained of the abdomen and pelvis before and after the administration of IV contrast. Coronal and sagittal images were obtained and reviewed. This study was performed with techniques to keep radiation doses as low as reasonably achievable, (ALARA). Individualized dose reduction techniques using automated exposure control or adjustment of mA and/or kV according to the patient's size were employed. CLINICAL HISTORY: mass, HX TESTICULAR AND SARCOMA CANCER COMPARISON: 11/27/2020 FINDINGS: The lung bases are clear. There is moderate fatty infiltration of the liver. The gallbladder is present. The spleen is unremarkable. There are 2 areas of fluid and nodularity along the right anterior pararenal fascia. The medial focus measures 3.1 x 1.6 cm in the lateral focus measures 3.2 x 1.8 cm, well seen on image 44 of series 5. A surgical clip is identified adjacent to the renal hilum. The previously noted large left retroperitoneal mass is no longer visible. There is a new 11 mm nonobstructing stone in the right renal collecting system. Cortical defect is noted overlying the stone, also new and well seen on image 48 of series 9. There is new extension of small bowel into the retroperitoneum along the left side of the abdominal aorta, probably due to surgical defect. The urinary bladder is decompressed. IMPRESSION: Interval resolution of previously noted large left retroperitoneal mass with associated postoperative change. Densities along the right anterior pararenal fascia are favored to be postsurgical rather than neoplastic. Close follow-up recommended. Resolution of previously noted left hydronephrosis. New right renal stone and cortical defect as described. No new adenopathy identified. Reviewed, Interpreted and Dictated by Jerry Quiros MD Transcribed by Vicki Angel Authenticated and [facility]
[2025-08-17] MEDS: 0.9 % SODIUM CHLORIDE 50 ML VIAL IV (13:20)
[2025-08-17] MEDS: SODIUM CHLORIDE 0.9% 10ML SYR (RAD ONLY) 10 ML IV (13:21)
[2025-08-17] MEDS: IOPAMIDOL-370 (76%);100ML BOTTLE 75 ML IV (13:21)
--- NOTE | 2025-08-17 13:45 | CA_ITS ---
APPROVED REPORT EXAM: Comprehensive 2D, Doppler, and color-flow Echocardiogram Energy Conservation Director: Diana Maya CRT Ht: 5 ft 8 in Wt: 222lbs BSA: 2.14 BP: 144/90 mmHg Indications: Chest Pain, Shortness of Breath, Palpitations, Peripheral Edema, Hypertension/HDD, DANK, chemo 2 yrs ago for testicular cancer 2D Dimensions LA Volume 29.00 mL LA Volume Index 13.20 mL/m2 (M/F) 16-34 M-Mode Dimensions RVDd 2.53 cm (0.9-2.6) LA Diam 3.50 cm (1.9-4.0) LVDd 4.54 cm (3.5-5.7) LVDs 3.19 cm (3.5-5.7) IVSd 1.38 cm (0.6-1.1) PWd 0.91 cm (0.6-1.1) EF (Teich) 57.00% FS 29.70% EDV (Teich) 94.40 mL TAPSE 1.68 (<1.7) ESV (Teich) 40.60 mL LV Diastology E Decel Time 203 (160-240 msec) E/A Ratio 1.26 MED A' 10.40 cm/s LAT A' 7.80 cm/s Aortic Valve AO Peak GR. 4.00 mmHg Mitral Valve MV A Velocity 47.0 (40-130 cm/s) E/A Ratio 1.26 Pulmonary Valve PV Peak Velocity 115.0 (50-150 cm/s) Tricuspid Valve TR P. Velocity 228.00 cm/s RAP Estimate 10.00 mmHg RVSP 30.90 mmHg Left Ventricle The left ventricle is normal size. Left ventricular systolic function is normal. The left ventricular ejection fraction is within the normal range. There is normal left ventricular wall thickness. There is normal LV segmental wall motion. The left ventricular diastolic function is normal. LVEF is 55% Right Ventricle The right ventricle is normal size. The right ventricular systolic function is normal. Atria The left atrium size is normal. The right atrium size is normal. There is no color Doppler evidence of interatrial shunt. Aortic Valve The aortic valve opens well. There is no hemodynamically significant aortic valvular stenosis. No aortic regurgitation is present. Mitral Valve The mitral valve is normal in structure. No evidence of mitral valve stenosis. Trace mitral regurgitation is present. Tricuspid Valve The tricuspid valve leaflets are thin and pliable. Trace tricuspid regurgitation. There is insufficient TR jet to estimate RVSP. Pulmonic Valve The pulmonary valve is grossly normal in structure. Trace pulmonic valve regurgitation is present. Great Vessels The aortic root is normal in size. IVC is normal in size and collapses >50% with inspiration. Pericardium There is no pericardial effusion. Other Information Study Quality: Adequate Conclusion Normal biventricular systolic function. No significant valvular stenosis or regurgitation. Electronically signed by : Vida Navas MD 08/20/2025 16:35:55
== END 2025-08-17 23:59 | disposition home or self-care (01) ==
LOC: RAD 12:14
PROVIDERS: PCP Nurse Practitioner Family; Visit Provider Physician Assistant
DX: I10 Essential (primary) hypertension (principal); G47.33 Obstructive sleep apnea (adult) (pediatric); R00.2 Palpitations; R06.02 Shortness of breath; R07.9 Chest pain, unspecified; R53.83 Other fatigue; R19.04 Left lower quadrant abdominal swelling, mass and lump; Z86.79 Personal history of other diseases of the circulatory system
CPT/HCPCS: 36415; 71270; 74178; 82565; 84520; 93306; Q9967

== ENCOUNTER 2025-08-24 14:51 | Outpatient (CLI) | payer MEDICAID, SELFPAY ==
--- OUTSIDE RECORDS SUMMARY | 2025-07-27 10:13 | XMS_ITS | Encounter Summary ---
Author Organization [facility] Address [address] [place] [address] Care Team Providers Care Gypsum Calciner Name Role Phone Diana Rosa CYNTHIA Primary Care Provider [phone] Ronald August MD Unavailable [phone] Steven Brewer MD Unavailable Reason for Referral * Imaging (Routine) - Closed Specialty Diagnoses / Procedures Referred By Contac t Referred To Contact Radiology Diagnoses Malignant neoplasm of testicle, unspecified laterality, unspecified whether descended or undescended Procedures CT Abdomen Pelvis w IV Contrast Susan Santacruz PA [address] [address] Phone: tel: fax: Referral ID Status Reason Start Date Expiration Date Visits Re quested Visits Authorized [id number] Closed 05/25/2025 11/24/2026 1 1 * Imaging (Routine) - Closed Specialty Diagnoses / Procedures Referred By Contac t Referred To Contact Radiology Diagnoses Malignant neoplasm of testicle, unspecified laterality, unspecified whether descended or undescended Procedures CT Chest w IV Contrast Susan Santacruz PA [address] [address] Phone: tel: fax: Referral ID Status Reason Start Date Expiration Date Visits Re quested Visits Authorized [id number] Closed 05/25/2025 11/24/2026 1 1 Reason for Visit * Imaging (Routine) - Closed Specialty Diagnoses / Procedures Referred By Contac t Referred To Contact Radiology Diagnoses Malignant neoplasm of testicle, unspecified laterality, unspecified whether descended or undescended Procedures CT Abdomen Pelvis w IV Contrast Susan Santacruz PA [address] [place] [address] Phone: tel: fax: Referral ID Status Reason Start Date Expiration Date Visits Re quested Visits Authorized [id number] Closed 05/25/2025 11/24/2026 1 1 Encounter Details Date Type Department Care Team (Latest Contact Info) Description 07/27/2025 10:13 AM EST - 07/27/2025 11:59 PM EST Hospital Encounter [facility] [address] [place] [address] Malignant neoplasm of testicle, unspecified laterality, unspecified whether descended or undescended Discharge Disposition: Home or Self Care Social History Tobacco Use Types Packs/Day Years Used Date Smoking Tobacco: Every Day Cigarettes 0.5 15 Smokeless Tobacco: Never Alcohol Use Standard Drinks/Week Comments Not Currently 0 (1 standard drink = 0.6 oz pur e alcohol) PHQ-2 Answer Date Recorded Patient Health Questionnaire-2 Score 0 04/21/2024 Sex and Gender Information Value Date Recorded Sex Assigned at Male 04/16/2021 6:32 AM EDT Legal Sex Male 8:00 PM EDT Gender Identity Male 04/16/2021 6:32 AM EDT Sexual Orientation Straight 06/11/2021 8: 31 AM EDT documented as of this encounter Medications at Time of Discharge busPIRone (Buspar) 10 MG tablet 02/13/2024 DULoxetine (Cymbalta) [address] capsule Take 1 capsule (60 mg) by mouth daily. 04/08/2024 metoprolol succinate XL (Toprol-XL) 100 MG 24 hr tablet Take 1 tablet (100 mg) by mouth daily. 04/08/2024 pantoprazole (Protonix) 40 MG EC tablet 02/04/2024 documented as of this encounter Miscellaneous Notes * Fang Lin - 07/27/2025 10:17 AM EST Images from the original note were not included. 1639 Caring for Yourself after Contrast Imaging If you had ORAL contrast: ? You can go back to your normal diet and activities as tolerated. ? Drink plenty of fluids, unless told otherwise. If you had IV contrast: ? You can go back to your normal diet and activities as tolerated. ? Drink plenty of fluids, unless told otherwise. ? Leave a bandage on the site for 30 minutes (where the IV was inserted or blood was drawn). If you had Intravesical (bladder) contrast: ? Return to normal diet and activity. What you need to know about delayed reaction to IV contrast What is IV Contrast? ? Contrast is a dye that is put into your body through an IV. ? It is used for imaging scans such as CT scans and MRIs. ? The contrast makes blood vessels, organs and other parts of your body show up better on the scan. What do I need to do after IV contrast? ? Drink lots of fluids. This will help flush the contrast out of your system. ? Drink 2-3 extra glasses or bottles of water within 4 hours of your scan. What is a contrast reaction? ? A contrast reaction is a bad side effect from the contrast dye. ? It is rare but it does happen. ? They can be mild - such as sneezing, itching, or hives. ? They can be severe - such as trouble breathing, throat swelling, and irregular heart beat. When do these reactions happen? ? They often happen right after the contrast is injected. ? Some happen hours after going home. Go to the nearest Emergency Department right away if you have any of these symptoms after you leavethe clinic or hospital. ? Sneezing ? Itching in your mouth, throat, eyes, ears, or skin ? Rash or hives ? Throwing up or stomach sickness ? High heart rate or ?racing? of your heart ? Feeling dizzy or woozy ? Feeling short of breath or like you can?t take a deep breath ? Feeling very anxious for no other reason It is very important that these reactions be treated. Tell the doctor or nurse that you are having a reaction to IV contrast dye. Do not ignore any sign of a reaction! All reactions must be assessed by a doctor. Call 911 if you are alone and your reaction is more than mild sneezing or itching. If you have a mild reaction, call to speak with a Radiologist, explain that you havehad a contrast reaction, as this needs to be added to your medical record. documented in this encounter Plan of Treatment Upcoming Encounters Date Type Department Care Team (Late st Contact Info) Description 02/01/2026 11:00 AM EDT Clinical Support [facility] [address] [place] [address] 02/01/2026 11:20 AM EDT Office Visit [facility] [address] [place] [address] Susan Santacruz, YANG [address] [place] [address] documented as of this encounter Procedures Procedure Name Priority Date/Time Associated Diagnosis Comments CT ABDOMEN PELVIS W IV CONTRAST Routine 07/27/2025 10:51 AM EST Malignant neoplasm of testicle, unspecified laterality, unspecified whether descended or undescended CT CHEST W IV CONTRAST Routine 07/27/2025 10:51 AM EST Malignant neoplasm of testicle, unspecified laterality, unspecified whether descended or undescended POCT CREATININE ISTAT UNSOLICITED RESULTS Routine 07/27/2025 10:37 AM EST documented in this encounter Results * CT Abdomen Pelvis w IV Contrast (07/27/2025 10:51 AM EST) Anatomical Region Laterality Modality Abdomen, Pelvis Computed Tomogra phy Impressions 07/27/2025 12:05 PM EST Chest: No evidence of disease progression. Abdomen/Pelvis: No evidence of disease progression. CRITICAL RESULT: No. COMMUNICATION: Per this written report. By electronically signing this report, I, the attending physician, attest that I have personally reviewed the images/data for the above examination(s) and agree with the final edited report. Drafted by Gerardo Sifuentes MD on 07/27/2025 11:00 AM Final report signed by Reilly Ramirez MD on 07/27/2025 12:05 PM Narrative 07/27/2025 12:05 PM EST CLINICAL INDICATION: testicular cancer TECHNIQUE: Multiple axial CT images were obtained from thoracic inlet through pubic symphysis following administration of IV contrast, Omnipaque 300, 100 mL. Reformatted images in the coronal and sagittal planes were generated from the axial data set to facilitate diagnostic accuracy. Total DLP (Dose-Length Product): 892.40 mGy.cm (accession [id number]), 892.40 mGy.cm (accession [id number]) Please note: The reported value represents the total of one or more individual components during the CT acquisition on this date and at this time, and as such, the same value may appear in more than one CT report depending on the interpreting/reporting physicians. COMPARISON: CT chest abdomen and pelvis performed on 04/21/2024 FINDINGS: Chest: Lymph Nodes and Mediastinum: Right hilar lymph node measures approximately 11 mm in short axis, unchanged from prior. No mediastinal mass. No suspicious thyroid findings. Cardiovascular: The heart is normal in caliber. Thoracic great vessels are patent. Right IJ central venous port terminates in the right atrium. Lungs and Pleura: The central airways are patent. Right anterior upper lobe nodule measures 5-6 mm, not significantly changed with remeasurement at a similar level. No new suspicious pulmonary nodules. No pleural effusions or suspicious thickening. Musculoskeletal and Body Wall: No clearly aggressive bone or body wall lesions. Abdomen/Pelvis: Solid Abdominal Organs: Hepatic steatosis without overt morphologic changes of cirrhosis. This limits detection for focal low-attenuation lesions. No overtly suspicious hepatic lesion. Subtle subcentimeter low-attenuation finding in the caudal right hemiliver (110, 3), unchanged. The gallbladder is unremarkable. No intra or extrahepatic biliary ductal dilatation. The pancreas enhances homogeneously with no pancreatic ductal dilatation. There are two low attenuation collections adjacent to the pancreatic body and tail. The collection inferior to the distal pancreatic body measures approximately 3.5 x 1.5 cm (series 1, 32), previously measured 3.3 x 1.7 cm. The collection lateral to the pancreatic tail measures approximately 1.5 x 3 cm (series 1, image 33), previously 1.7 x 3 cm. Spleen is normal in size. No renal masses or hydronephrosis. Unchanged 10 mm nonobstructive calculus within the right kidney interpolar region. 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 No ureteral calculi. The adrenal glands are unremarkable. GI Tract/Mesentery/Peritoneum: No large or small bowel dilatation. No bowel wall thickening. No suspicious mesenteric findings. Pelvic Viscera: The bladder, seminal vesicles, and prostate are unremarkable. No suspicious mass. Prior left orchiectomy. Lymph Nodes/Vasculature: Prior retroperitoneal lymph node dissection. No suspicious lymphadenopathy in the abdomen or pelvis. Free Fluid: No free fluid. Musculoskeletal and Body Wall: Postsurgical changes in the ventral abdominal wall. Small fat-containing umbilical hernia. No aggressive osseous findings.. Procedure Note Reilly Ramirez MD - 07/27/2025 CLINICAL INDICATION: testicular cancer TECHNIQUE: Multiple axial CT images were obtained from thoracic inlet through pubicsymphysis following administration of IV contrast, Omnipaque 300, 100 mL.Reformatted images in the coronal and sagittal planes were generated fromthe axial data set to facilitate diagnostic accuracy. Total DLP (Dose-Length Product): 892.40 mGy.cm (accession [id number]),892.40 mGy.cm (accession [id number]) Please note: The reported valuerepresents the total of one or more individual components during the CTacquisition on this date and at this time, and as such, the same value mayappear in more than one CT report depending on the interpreting/reportingphysicians. COMPARISON: CT chest abdomen and pelvis performed on 04/21/2024 FINDINGS: Chest: Lymph Nodes and Mediastinum: Right hilar lymph node measures [id number] mm in short axis, unchanged from prior. No mediastinal mass. Nosuspicious thyroid findings. Cardiovascular: The heart is normal in caliber. Thoracic great vessels arepatent. Right IJ central venous port terminates in the right atrium. Lungs and Pleura: The central airways are patent. Right anterior upperlobe nodule measures 5-6 mm, not significantly changed with remeasurementat a similar level. No new suspicious pulmonary nodules. No pleuraleffusions or suspicious thickening. Musculoskeletal and Body Wall: No clearly aggressive bone or body walllesions. Abdomen/Pelvis: Solid Abdominal Organs: Hepatic steatosis without overt morphologicchanges of cirrhosis. This limits detection for focal low-attenuationlesions. No overtly suspicious hepatic lesion. Subtle subcentimeterlow-attenuation finding in the caudal right hemiliver (110, 3), unchanged. The gallbladder is unremarkable. No intra or extrahepatic biliary ductaldilatation. The pancreas enhances homogeneously with no pancreatic ductaldilatation. There are two low attenuation collections adjacent to thepancreatic body and tail. The collection inferior to the distal pancreaticbody measures approximately 3.5 x 1.5 cm (series 1, 32), previouslymeasured 3.3 x 1.7 cm. The collection lateral to the pancreatic tailmeasures approximately 1.5 x 3 cm (series 1, image 33), previously 1.7 x 3cm. Spleen is normal in size. No renal masses or hydronephrosis. 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 No ureteral calculi.The adrenal glands are unremarkable. GI Tract/Mesentery/Peritoneum: No large or small bowel dilatation. Nobowel wall thickening. No suspicious mesenteric findings. Pelvic Viscera: The bladder, seminal vesicles, and prostate areunremarkable. No suspicious mass. Prior left orchiectomy. Lymph Nodes/Vasculature: Prior retroperitoneal lymph node dissection. Nosuspicious lymphadenopathy in the abdomen or pelvis. Free Fluid: No free fluid. Musculoskeletal and Body Wall: Postsurgical changes in the ventralabdominal wall. Small fat-containing umbilical hernia. No aggressiveosseous findings.. IMPRESSION: Chest: No evidence of disease progression. Abdomen/Pelvis: No evidence of disease progression. CRITICAL RESULT: No. COMMUNICATION: Per this written report. By electronically signing this report, I, the attending physician, attestthat I have personally reviewed the images/data for the aboveexamination(s) and agree with the final edited report. Drafted by Gerardo Sifuentes MD on 07/27/2025 11:00 AM Final report signed by Reilly Ramirez MD on 07/27/2025 12:05 [address] CT PROCEDURES Final Res ult * CT Chest w IV Contrast (07/27/2025 10:51 AM EST) Anatomical Region Laterality Modality Chest Computed Tomogra phy Impressions 07/27/2025 12:05 PM EST Chest: No evidence of disease progression. Abdomen/Pelvis: No evidence of disease progression. CRITICAL RESULT: No. COMMUNICATION: Per this written report. By electronically signing this report, I, the attending physician, attest that I have personally reviewed the images/data for the above examination(s) and agree with the final edited report. Drafted by Gerardo Sifuentes MD on 07/27/2025 11:00 AM Final report signed by Reilly Ramirez MD on 07/27/2025 12:05 PM Narrative 07/27/2025 12:05 PM EST CLINICAL INDICATION: testicular cancer TECHNIQUE: Multiple axial CT images were obtained from thoracic inlet through pubic symphysis following administration of IV contrast, Omnipaque 300, 100 mL. Reformatted images in the coronal and sagittal planes were generated from the axial data set to facilitate diagnostic accuracy. Total DLP (Dose-Length Product): 892.40 mGy.cm (accession [id number]), 892.40 mGy.cm (accession [id number]) Please note: The reported value represents the total of one or more individual components during the CT acquisition on this date and at this time, and as such, the same value may appear in more than one CT report depending on the interpreting/reporting physicians. COMPARISON: CT chest abdomen and pelvis performed on 04/21/2024 FINDINGS: Chest: Lymph Nodes and Mediastinum: Right hilar lymph node measures approximately 11 mm in short axis, unchanged from prior. No mediastinal mass. No suspicious thyroid findings. Cardiovascular: The heart is normal in caliber. Thoracic great vessels are patent. Right IJ central venous port terminates in the right atrium. Lungs and Pleura: The central airways are patent. Right anterior upper lobe nodule measures 5-6 mm, not significantly changed with remeasurement at a similar level. No new suspicious pulmonary nodules. No pleural effusions or suspicious thickening. Musculoskeletal and Body Wall: No clearly aggressive bone or body wall lesions. Abdomen/Pelvis: Solid Abdominal Organs: Hepatic steatosis without overt morphologic changes of cirrhosis. This limits detection for focal low-attenuation lesions. No overtly suspicious hepatic lesion. Subtle subcentimeter low-attenuation finding in the caudal right hemiliver (110, 3), unchanged. The gallbladder is unremarkable. No intra or extrahepatic biliary ductal dilatation. The pancreas enhances homogeneously with no pancreatic ductal dilatation. There are two low attenuation collections adjacent to the pancreatic body and tail. The collection inferior to the distal pancreatic body measures approximately 3.5 x 1.5 cm (series 1, 32), previously measured 3.3 x 1.7 cm. The collection lateral to the pancreatic tail measures approximately 1.5 x 3 cm (series 1, image 33), previously 1.7 x 3 cm. Spleen is normal in size. No renal masses or hydronephrosis. Unchanged 10 mm nonobstructive calculus within the right kidney interpolar region. 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 No ureteral calculi. The adrenal glands are unremarkable. GI Tract/Mesentery/Peritoneum: No large or small bowel dilatation. No bowel wall thickening. No suspicious mesenteric findings. Pelvic Viscera: The bladder, seminal vesicles, and prostate are unremarkable. No suspicious mass. Prior left orchiectomy. Lymph Nodes/Vasculature: Prior retroperitoneal lymph node dissection. No suspicious lymphadenopathy in the abdomen or pelvis. Free Fluid: No free fluid. Musculoskeletal and Body Wall: Postsurgical changes in the ventral abdominal wall. Small fat-containing umbilical hernia. No aggressive osseous findings.. Procedure Note Reilly Ramirez MD - 07/27/2025 CLINICAL INDICATION: testicular cancer TECHNIQUE: Multiple axial CT images were obtained from thoracic inlet through pubicsymphysis following administration of IV contrast, Omnipaque 300, 100 mL.Reformatted images in the coronal and sagittal planes were generated fromthe axial data set to facilitate diagnostic accuracy. Total DLP (Dose-Length Product): 892.40 mGy.cm (accession [id number]),892.40 mGy.cm (accession [id number]) Please note: The reported valuerepresents the total of one or more individual components during the CTacquisition on this date and at this time, and as such, the same value mayappear in more than one CT report depending on the interpreting/reportingphysicians. COMPARISON: CT chest abdomen and pelvis performed on 04/21/2024 FINDINGS: Chest: Lymph Nodes and Mediastinum: Right hilar lymph node measures [id number] mm in short axis, unchanged from prior. No mediastinal mass. Nosuspicious thyroid findings. Cardiovascular: The heart is normal in caliber. Thoracic great vessels arepatent. Right IJ central venous port terminates in the right atrium. Lungs and Pleura: The central airways are patent. Right anterior upperlobe nodule measures 5-6 mm, not significantly changed with remeasurementat a similar level. No new suspicious pulmonary nodules. No pleuraleffusions or suspicious thickening. Musculoskeletal and Body Wall: No clearly aggressive bone or body walllesions. Abdomen/Pelvis: Solid Abdominal Organs: Hepatic steatosis without overt morphologicchanges of cirrhosis. This limits detection for focal low-attenuationlesions. No overtly suspicious hepatic lesion. Subtle subcentimeterlow-attenuation finding in the caudal right hemiliver (110, 3), unchanged. The gallbladder is unremarkable. No intra or extrahepatic biliary ductaldilatation. The pancreas enhances homogeneously with no pancreatic ductaldilatation. There are two low attenuation collections adjacent to thepancreatic body and tail. The collection inferior to the distal pancreaticbody measures approximately 3.5 x 1.5 cm (series 1, 32), previouslymeasured 3.3 x 1.7 cm. The collection lateral to the pancreatic tailmeasures approximately 1.5 x 3 cm (series 1, image 33), previously 1.7 x 3cm. Spleen is normal in size. No renal masses or hydronephrosis. 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 No ureteral calculi.The adrenal glands are unremarkable. GI Tract/Mesentery/Peritoneum: No large or small bowel dilatation. Nobowel wall thickening. No suspicious mesenteric findings. Pelvic Viscera: The bladder, seminal vesicles, and prostate areunremarkable. No suspicious mass. Prior left orchiectomy. Lymph Nodes/Vasculature: Prior retroperitoneal lymph node dissection. Nosuspicious lymphadenopathy in the abdomen or pelvis. Free Fluid: No free fluid. Musculoskeletal and Body Wall: Postsurgical changes in the ventralabdominal wall. Small fat-containing umbilical hernia. No aggressiveosseous findings.. IMPRESSION: Chest: No evidence of disease progression. Abdomen/Pelvis: No evidence of disease progression. CRITICAL RESULT: No. COMMUNICATION: Per this written report. By electronically signing this report, I, the attending physician, abiel I have personally reviewed the images/data for the aboveexamination(s) and agree with the final edited report. Drafted by Gerardo Sifuentes MD on 07/27/2025 11:00 AM Final report signed by Reilly Ramirez MD on 07/27/2025 12:05 PM [address] PROCEDURES Final Res ult * (ABNORMAL) POCT creatinine (07/27/2025 10:37 AM EST) Creatinine, Point of Care 1.6(H) 0.7 - 1.2 mg/dL 07/27/2025 10:41 AM EST [facility] POCT eGFR 57 mL/min/1. 73m*2 07/27/2025 10:41 AM EST [facility] Customer Services Supervisor ID Fang Urbina 07/27/2025 10:41 AM EST [facility] Device ID [id number] 07/27/2025 10:41 AM EST [facility] Comment 07/27/2025 10:[address] [facility] Comment:Testing performed on i-STAT at the point of care. Reported eGFRcr in mL/min/1.73m2 is based the CKD-EPI 2020 equation that does not use a race coefficient. Blood Venous blood specimen / Unknown 07/27/2025 10:37 AM EST 07/27/2025 10:41 AM EST Generic Provider Poct LAB POINT OF CARE TEST DOCKED DEVICE UNSOLICITED RESULTS Final Result [facility] [address] [place] [address] [facility] [address] [place] [address] documented in this encounter Visit Diagnoses Diagnosis Malignant neoplasm of testicle, unspecified laterality, unspecified whether descended or undescended documented in this encounter Administered Medications Inactive Administered Medications - up to 3 most recent administrations Medication Order MAR Action Action Date Dose Rate Site iohexol (OMNIPaque) 300 MG/ML injection 100 mL 100 mL, Intravenous, Once in imaging, 1 dose, Starting on Fri07/27/25 at 1017, Until Fri07/27/25 at 1044, Routine, Imaging Protocol Orders Given 07/27/2025 10:44 AM EST 100 mL iohexol (OMNIPaque) 9 MG/ML oral contrast 500 mL 500 mL, Oral, Once in imaging, 1 dose, Starting on Fri07/27/25 at 1017, Until Fri07/27/25 at 1020, Routine, Imaging Protocol Orders Given 07/27/2025 10:20 AM EST 500 mL documented in this encounter Additional Health Concerns Assessment Noted Time A fall risk assessment has been complete d for the patient 04/21/2024 2:45 PM EDT A Body Mass Index follow-up plan has been documented for the patient 11/03/2024 3:14 PM EST documented as of this encounter Care Teams Gypsum Calciner Relationship Specialty Start Date End Date Diana RosaCYNTHIA [address] [facility] [address] [place] [address] PCP - General 01/19/21 Ronald August MD [address] [place] [address] Surgeon Urology 07/11/21 Steven Brewer MD [address] [place] [address] Consulting Physician Medical Oncology 07/11/21 documented as of this encounter
--- OUTSIDE RECORDS SUMMARY | 2025-07-27 14:40 | XMS_ITS | Encounter Summary ---
Author Organization Healthcare Address [address] 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) Social History Tobacco Use Types Packs/Day Years Used Date Smoking Tobacco: Every Day Cigarettes 0.5 15 Smokeless Tobacco: Never Tobacco Cessation:Ready to Q uit: Not Asked; Counseling Given: Not Answered Alcohol Use Standard Drinks/Week Comments Not Currently [...] as of this encounter Miscellaneous Notes * Assessment & Plan Note - Susan Santacruz PA - 07/27/2025 2:40 PM EST Associated Problem(s): 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 Tumor markers are due, he will get drawn next week. Continue close surveillance. RTC [address] CAP, tumor markers and exam. Orders: Alpha Fetoprotein, Serum; Future Lactate dehydrogenase; Future hCG, Total Beta, Quantitative, Plasma; Future * Addendum Note - Katt Lorenzo RN - 07/27/2025 2:40 PM ESTAddended by: KATT LORENZO on: 07/28/2025 09:39 AM Modules accepted: Orders * Progress Notes - Susan Santacruz PA - 07/27/2025 2:40 PM EST Telehealth Visit Subjective Patient ID: Richardson Luevano is a 39 y.o. male. HPI Richardson Luevano is a 39 y.o. male with history of metastatic NSGCT. He was initially admitted 12/07/20 and found to have left testicular mass, large 11cm retroperitoneal mass causing hydronephrosis, and elevated tumor markers (Stage IIIB, S3). He underwent cysto, left stent placement, left radical orchiectomy on 12/07/20 (Path: Mixed: 50% Embryonal, 40% teratoma, 10% yolk sac, GCNIS, Tumor invading rete testis, spermatic cord margin negative), [id number]. He is s/p BEP x2, which was switched toVIP due to decreased DLCO on PFTs, completed VIP x2 in March 2021. [facility], which has since been removed. Path from demonstrated viable teratoma in 1/6 paracaval nodes (ypN2). Surveillance imaging since then has noted a stable 15mm portacaval node unchanged in size, as well as kush-pancreatic hypodense collections that have been decreasing over time . He was last seen 10/2024 at which time he was doing well. Patient follows up today via , had imaging performed today which shows no recurrent disease. Patient relays is generally feels well, no specific concerns. Labs are due. Objective Physical Exam Constitutional: General: He is not in acute distress. Pulmonary: Effort: Pulmonary effort is normal. Neurological: Mental Status: He is alert and oriented to person, place, and time. Psychiatric: Mood and Affect: Mood normal. Thought Content: Thought content normal. Assessment/Plan Assessment & Plan Non-seminomatous cancer of left testis (CMS/HCC) -left orchiectomy, [id number] (Stage IIIB, S3) s/p primary chemotherapy (BEPx2, VIPx2), and post chemotherapy RPLND (viable teratoma in 1/6 paracaval nodes ypN2 Imaging is stable . Tumor markers are due, he will get drawn next week. Continue close surveillance. RTC [address] CAP, tumor markers and exam. Orders: Alpha Fetoprotein, Serum; Future Lactate dehydrogenase; Future hCG, Total Beta, Quantitative, Plasma; Future Telehealth Statement Patient Verification Patient identity has been confirmed using name and date of ? Yes Authorizations and Agreements/Telemedicine Consent sent and consent confirmed? Yes Patient Location: Home/Other Patient confirms they are physically located in [place]? Yes If the patient is not physically located in [place], the provider has confirmed with [facility] thatthe provider is authorized to provide services in patient's stated location? N/A Provider Location: [facility] facility Audio and video or audio only? Audio and video documented in this encounter Plan of Treatment Upcoming Encounters Date Type Department Care Team (Late st Contact Info) Description 02/01/2026 11:00 AM EDT Clinical Support [facility] Multidisciplinary Oncology Clinic [address] [place] [address] 02/01/2026 11:20 AM EDT Office Visit [facility] Multidisciplinary Oncology Clinic [address] [place] [address] Susan Santacruz PA [address] [place] [address] Scheduled Orders Name Type Priority Associated Diagnoses Orde r Schedule Alpha Fetoprotein, Serum Lab Routine Non-seminomatous cancer of left testis (CMS/HCC) Expected: 07/27/2025 (Approximate), Expires: 12/31/2026 Lactate dehydrogenase Lab Routine Non-seminomatous cancer of left testis (CMS/HCC) Expected: 07/27/2025 (Approximate), Expires: 12/31/2026 hCG, Total Beta, Quantitative, Plasma Lab Routine Non-seminomatous cancer of left testis (CMS/HCC) Expected: 07/27/2025 (Approximate), Expires: 12/31/2026 hCG, Total Beta, Quantitative, Plasma Lab Routine Non-seminomatous cancer of left testis (CMS/HCC) Expected: 01/25/2026 (Approximate), Expires: 01/29/2027 Alpha Fetoprotein, Serum Lab Routine Non-seminomatous cancer of left testis (CMS/HCC) Expected: 01/25/2026 (Approximate), Expires: 01/29/2027 Lactate Dehydrogenase, Plasma Lab Routine Non-seminomatous cancer of left testis (CMS/HCC) Expected: 01/25/2026 (Approximate), Expires: 01/29/2027 documented as of this encounter Visit Diagnoses Diagnosis Non-seminomatous cancer of left testis (CMS/HCC)- Primary documented in this encounter Additional Health Concerns Assessment Noted Time A fall risk assessment has been complete d for the patient 04/21/2024 2:45 PM EDT A Body Mass Index follow-up plan has been documented for the patient 11/03/2024 3:14 PM EST documented as of this encounter Care Teams Stain Remover Relationship Specialty Start Date End Date Diana Rosa APRN [address] [place] [address] PCP - General 01/19/21 Ronald August MD [address] [facility] [address] [place] [address] Surgeon Urology 07/11/21 Steven Brewer MD [address] [facility] [address] [place] [id number] Consulting Physician Medical Oncology 07/11/21 documented as of this encounter
--- OUTSIDE RECORDS SUMMARY | 2025-08-24 15:49 | XMS_ITS ---
Author Organization [facility] Address [address] [place] [address] Care Team Providers Care Home Support Worker Name Role Phone Diana Rosa CYNTHIA Primary Care Provider [phone] Ronald August MD Unavailable [phone] Steven Brewer MD Unavailable Active Problems [...] dissection 06/11 Monitoring for retroperitoneal bleeding/other complications Assessment & Plan (07/27/2025 3:03 PM EST): -left orchiectomy, [id number] (Stage IIIB, S3) s/p primary chemotherapy (BEPx2, VIPx2), and post chemotherapy RPLND (viable teratoma in 1/6 paracaval nodes ypN2 Imaging is stable . Tumor markers are due, he will get drawn next week. Continue close surveillance. RTC [address] CAP, tumor markers and exam. Orders: Alpha Fetoprotein, Serum; Future Lactate dehydrogenase; Future hCG, Total Beta, Quantitative, Plasma; Future Cancer Overview (11/03/2024): last chemo 03/20/21 Dental [...] CISplatin Daily x 5 Every 21 Days 4/02/14/2021 bleomycin (Bleocin)CISplat in (Platinol)Etopos [place] (Toposar) Toxicity/Comp [...]
--- OUTSIDE RECORDS SUMMARY | 2025-08-24 15:49 | XMS_ITS | Encounter Summary ---
Author Organization [facility] Address [address] [place] [address] Care Team Providers Care Urology Teacher Name Role Phone Diana Rosa CYNTHIA Primary Care Provider [phone] Ronald August MD Unavailable [phone] Steven Brewer MD Unavailable Encounter Details Date Type Department Care Team (Latest Contact Info) Description 07/27/2025 Travel Social History Tobacco Use Types Packs/Day Years [...] Description 02/01/2026 11:00 AM EDT Clinical Support [facility] [address] [place] [address] 02/01/2026 11:20 AM EDT Office Visit [facility] [address] [place] [address] Susan Santacruz PA [address] [facility] [address] [place] [address] documented as of this encounter Visit Diagnoses Not on filedocumented in this encounter Additional Health Concerns Assessment Noted Time A fall risk assessment has been complete d for the patient 04/21/2024 2:45 PM EDT A Body Mass Index follow-up plan has been documented for the patient 11/03/2024 3:14 PM EST documented as of this encounter Care Teams Urology Teacher Relationship Specialty Start Date End Date Diana Rosa APRN [address] [facility] [address] [place] [place] [id number] PCP - General 01/19/21 Ronald August MD [address] [facility] [address] [place] [address] Surgeon Urology 07/11/21 Steven Brewer MD [address] [facility] [address] [place] [address] Consulting Physician Medical Oncology 07/11/21 documented as of this encounter
--- OUTSIDE RECORDS SUMMARY | 2025-08-24 15:49 | XMS_ITS | Encounter Summary ---
Author Organization Healthcare Address [address] [place] [address] Care Team Providers Care Therapeutic Recreation Leader Name Role Phone Diana Rosa CYNTHIA Primary Care Provider [phone] Ronald August MD Unavailable [phone] Steven Brewer MD Unavailable Encounter Details Date Type Department Care Team (Late Contact Info) Description 02/02/2021 Abstract [facility] Pulmonary Function Testing [address] [place] [address] Pulmonary, Nurse, RN [address] [place], [place] [id number] Social History Tobacco Use Types Packs/Day Years [...] Department Care Team (Late Contact Info) Description 02/01/2026 11:00 AM EDT Clinical Support [facility] Multidisciplinary Oncology Clinic [address] [place] [address] 02/01/2026 11:20 AM EDT Office Visit [facility] Multidisciplinary Oncology Clinic [address] [place] [address] Susan Santacruz PA [address] [facility] [address] [place] [address] documented as of this encounter Visit Diagnoses Not on filedocumented in this encounter Additional Health Concerns Infection Onset Date Last Indicated Resolved Time COVID-19 Rule-Out 06/14/2021 06/14/2021 06/14/2021 5:02 PM EDT documented as of this encounter Care Teams Therapeutic Recreation Leader Relationship Specialty Start Date End Date Diana Rosa, CERAMIC CAPACITOR PROCESSOR [address] [facility] [address] [place] [address] PCP - General 01/19/21 Ronald August MD [address] [facility] [address] [place] [address] Surgeon Urology 07/11/21 Steven Brewer MD [address] [facility] [address] [place] [address] Consulting Physician Medical Oncology 07/11/21 documented as of this encounter
--- OUTSIDE RECORDS SUMMARY | 2025-08-24 15:49 | XMS_ITS | Clinical Summary ---
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) 07/27/2025 10:13 AM EST - 07/27/2025 11:59 PM EST Hospital Encounter [facility] [address] [place] [address] Malignant neoplasm of testicle, unspecified laterality, unspecified whether descended or undescended Discharge Disposition: Home or Self Care 07/27/2025 Travel 05/27/2025 Telephone [facility] [address] [place] [address] Susan Santacruz 05/25/2025 Orders Only [facility] [address] [place] [address] Mena Brice, RN Malignant neoplasm of testicle, unspecified laterality, unspecified whether descended or undescended (CMS/HCC) (Primary Dx) from Last 3 Months Family History Medical [...] Description 02/01/2026 11:00 AM EDT Clinical Support [facility] [address] [place] [address] 02/01/2026 11:20 AM EDT Office Visit [facility] [address] [place] [address] Susan Santacruz PA [address] [facility] [address] [place] [address] Health Maintenance Due Date Last Done Comments [facility]-Infant/Child/Adol SDOH Screenings 1987 [id number] Vaccine (#1) 03/22/1988 [facility]-Varicella Vaccines (1 of 2 - 13+ 2-dose series) 2000 [facility]-DTaP,Tdap,and Td Vaccines (2 - Tdap) 05/16/2004 05/15/2004 [facility]- SDOH Screenings 2005 [facility]-Adult SDOH Screenings 2005 [facility]-Hepatitis A Vaccines (1 of 2 - Risk 2-dose series) 2006 [facility]-Hepatitis B Vaccines (1 of 3 - 19+ 3-dose series) 2006 [facility]-Pneumococcal Vaccine: Pediatrics (0 to 5 Years) and At-Risk Patients (6 to 49 Years) (1 of 2 - PCV) 2006 [facility]-Zoster Vaccines (1 of 2) 2006 [facility]-Depression Screening 04/21/2025 04/21/2024, 12/2020 [facility]-Influenza Vaccine (#1) 2025 [facility]-HIV Screening Completed 01/08/2021 [facility]-Hepatitis C Screening Completed 06/14/2021, 11/2020 [facility]-Obesity Intervention Completed 025, 04/21/2024, 12/10/2023, Additional history exists HPV Vaccines (No Doses Required) Completed [facility]-HIB Vaccines Aged Out No longer e ligible based on patient's age to complete this topic [facility]-IPV Vaccines Aged Out No longer e ligible based on patient's age to complete this topic [facility]-Rotavirus Vaccines Aged Out No lo nger eligible based on patient's age to complete this topic Medical Devices Implanted Type Area Lobby Attendant Device Identifier Shelf Expiration Date Model / Serial / Lot Stent Left: Ureter Port Right: Chest Procedures Procedure Name Priority Date/Time Associated Diagnosis Comments CT ABDOMEN PELVIS W IV CONTRAST Routine 07/27/2025 10:51 AM EST Malignant neoplasm of testicle, unspecified laterality, unspecified whether descended or undescended CT CHEST W IV CONTRAST Routine 10:51 AM EST Malignant neoplasm of testicle, unspecified laterality, unspecified whether descended or undescended POCT CREATININE ISTAT UNSOLICITED RESULTS Routine 07/27/2025 10:37 AM EST ACUTE HEPATITIS PANEL Routine 06/14/2021 10:16 AM EDT HIV 1/2 ANTIBODY/ANTIGEN SCREEN WITH REFLEX TO HIV I/II DIFFERENTIATION Routine 01/08/2021 8:35 PM EDT from Last 3 Months or Most Recently Relevant to Health Maintenance Results * CT Abdomen Pelvis w IV [...] Total DLP (Dose-Length Product): 892.40 mGy.cm (accession [id number]), 892.40 mGy.cm (accession [id number]) Please note: The reported value represents the [...] Total DLP (Dose-Length Product): 892.40 mGy.cm (accession [id number]),892.40 mGy.cm (accession [id number]) Please note: The reported valuerepresents the total of one or more individual components during the CTacquisition on this date and at this time, and as such, the same value mayappear in more than one CT report depending on the interpreting/reportingphysicians. COMPARISON: CT chest abdomen and pelvis performed on 04/21/2024 FINDINGS: Chest: Lymph Nodes and Mediastinum: Right hilar lymph node measures [id number] mm in short axis, unchanged from prior. [...] in size. No renal masses or hydronephrosis. [id number] mm nonobstructive calculus within the right kidney [...] Total DLP (Dose-Length Product): 892.40 mGy.cm (accession [id number]), 892.40 mGy.cm (accession [id number]) Please note: The reported value represents the [...] Total DLP (Dose-Length Product): 892.40 mGy.cm (accession [id number]),892.40 mGy.cm (accession [id number]) Please note: The reported valuerepresents the total of one or more individual components during the CTacquisition on this date and at this time, and as such, the same value mayappear in more than one CT report depending on the interpreting/reportingphysicians. COMPARISON: CT chest abdomen and pelvis performed on 04/21/2024 FINDINGS: Chest: Lymph Nodes and Mediastinum: Right hilar lymph node measures mm in short axis, unchanged from prior. [...] in size. No renal masses or hydronephrosis. Slphdcsif76 mm nonobstructive calculus within the right kidney [...] signing this report, I, the attending physician, attsandy I have personally reviewed the images/data for the aboveexamination(s) and agree with the final edited report. Drafted by Gerardo Sifuetnes MD on 07/27/2025 11:00 AM Final report signed by Reilly Ramirez MD on 07/27/2025 12:05 PM Susan SORIA IMG CT PROCEDURES Final Res ult * (ABNORMAL) POCT creatinine (07/27/2025 10:37 AM EST) Creatinine, Point of Care 1.6(H) 0.7 - 1.2 mg/dL 07/27/2025 10:41 AM EST [facility] POCT eGFR 57 mL/min/1. 73m*2 07/27/2025 10:41 AM EST [facility] Site Monitor ID Fang Urbina 07/27/2025 10:41 AM EST [facility] Device ID [id number] 07/27/2025 10:41 AM EST [facility] Comment 07/27/2025 10:[address] [facility] Comment:Testing performed on i-STAT at the point of care. Reported eGFRcr in mL/min/1.73m2 is based the CKD-EPI 2020 equation that does not use a race coefficient. Blood Venous blood specimen / Unknown 07/27/2025 10:37 AM EST 07/27/2025 10:41 AM EST us Generic Provider Poct LAB POINT OF CARE TEST DOCKED DEVICE UNSOLICITED RESULTS Final Result Performing Organization Address [facility] de Phone Number [facility]ALTH[facility]ARE [facility] [address] LAB [address] [place] [address] * Hepatitis panel, acute (06/14/2021 10:16 AM EDT) Pathologist [facility] Hepatitis B Surf Antigen Negative Negative 06/15/2021 5:09 PM EDT [facility] Hepatitis C Antibody Negative Negative 06/15/2021 5:09 PM EDT [facility] Hepatitis A Antibody IgM Negative Negative 06/15/2021 5:09 PM EDT [facility] Hepatitis B Core Antibody IgM Negative Negative 06/15/2021 5:09 PM EDT [facility] Blood Venous blood specimen / Unknown Venipuncture / Unknown 06/14/2021 10:16 AM EDT 06/14/2021 10:21 AM EDT us Mark Menon MD LAB BLOOD ORDERABLES Final Res ult Performing Organization Address [facility] de Phone Number [facility] [address] [place] [address] * HIV 1 & 2 Antibody/Antigen Screen (01/08/2021 8:35 PM EDT) Pathologist [facility] HIV 1 Result NONREACTIVE Screening for HIV 1 and 2 antibodies is NONREACTIVE. No confirmatory testing is required. [facility] 01/08/2021 8:35 PM EDT 01/08/2021 8:44 PM EDT us Basilio Ferguson LAB BLOOD ORDERABLES Final Resul t Performing Organization Address [facility] de Phone Number [facility] from Last 3 Months or Most Recently Relevant to Health Maintenance Insurance [facility] MEDICAID Advance Directives * Full Code [...] Patient has decision-making capacity? Yes Care Teams Boring Inspector Relationship Specialty Start Date End Date Moe Diana Arroyo, CYNTHIA [address] [place] [address] PCP - General 01/19/21 Ronald August MD [address] [facility] [address] [place] [phone] Surgeon Urology 07/11/21 Steven Brewer MD [address] [place] [phone] Consulting Physician Medical Oncology 07/11/21
--- OUTSIDE RECORDS SUMMARY | 2025-08-24 15:49 | XMS_ITS | Encounter Summary ---
Author Organization [facility] Address [address] [place] [address] Care Team Providers Care Activities Aide Name Role Phone Diana Rosa CYNTHIA Primary Care Provider Ronald August MD Unavailable [phone] Steven Brewer MD Unavailable Encounter Details Date Type Department Care Team (Late st Contact Info) Description 08/20/2021 Lab Requisition [facility] [address] [place] [address] Guilherme Ly MD [address] [facility] [address] [place] [address] Chronic duodenal ulcer without hemorrhage or perforation [...] Description 02/01/2026 11:00 AM EDT Clinical Support [facility] [address] [place] [address] 02/01/2026 11:20 AM EDT Office Visit [facility] [address] [place] [address] Susan Santacruz PA [address] [place] [address] documented as of this encounter Procedures Procedure Name Priority Date/Time Associated Diagnosis Comments SURGICAL PATHOLOGY EXAM Routine 08/20/2021 Chronic duodenal ulcer without hemorrhage or perforation documented in this encounter Results * Surgical Pathology Exam (08/20/2021) Case Report Surgical Pathology Case: [id number] Authorizing Provider: Guilherme Ly MD Collected: 08/20/2021 Ordering Location: [facility] Lab Received: 08/20/2021 1347 Pathologist: Rachel Mckeon MD Specimen: Stomach, Gastric Bx 08/21/2021 5:10 PM EST [facility] Final Diagnosis A. GASTRIC BX - MINIMAL CHRONIC GASTRITIS WITH FEATURES SUGGESTIVE OF SUPERFICIAL EROSION AND A CHEMICAL GASTRITIS (REACTIVE GASTROPATHY). - HELICOBACTER ARE NOT IDENTIFIED ON ROUTINE STAIN. - NO EVIDENCE OF INTESTINAL METAPLASIA OR MALIGNANCY. 08/21/2021 5:10 PM EST [facility] at 1710 EST Clinical Information History [...] / Unknown 08/20/2021 08/20/2021 1:47 PM EST us Guilherme Ly MD LAB PATHOLOGY ORDERABLES Final Result [facility] [address] [place] [address] documented in this encounter Visit Diagnoses Diagnosis Chronic duodenal ulcer without hemorrhage or perforation Chronic duodenal ulcer without mention of hemorrhage, perforation, or obstruction documented in this encounter Additional Health Concerns Assessment Noted Time A fall risk assessment has been complete d for the patient 07/16/2021 1:15 PM EST documented as of this encounter Care Teams Activities Aide Relationship Specialty Start Date End Date Diana Rosa, [employer] [address] [address] [place] [address] PCP - General 01/19/21 Ronald August MD [address] [facility] [address] [place] [address] Surgeon Urology 07/11/21 Steven Brewer MD [address] [facility] [address] [place] [address] Consulting Physician Medical Oncology 07/11/21 documented as of this encounter
== END 2025-08-24 23:59 | disposition home or self-care (01) ==
LOC: LAB 14:52
PROVIDERS: PCP Nurse Practitioner Family; Visit Provider Physician Assistant Medical
DX: C62.92 Malignant neoplasm of left testis, unspecified whether descended or undescended (principal)
CPT/HCPCS: 36415; 82105; 83615; 84702